=== PATIENT | male | born 1935 | race Caucasian/White ===

== ENCOUNTER 2017-06-07 08:00 | Outpatient (CLI) | payer MEDICARE, OTHER ==
[2017-06-07 13:59] LABS: PSA FREE 0.554 ng/mL (0.16-2.81)
[2017-06-07 14:01] LABS: PSA TOTAL 2.198 ng/mL (0.000-2.000)
[2017-06-07 14:05] LABS: ALBUMIN/GLOBULIN RATIO 1.3 (1.0-2.2); BILIRUBIN,TOTAL 0.6 mg/dL (0.2-1.0); BUN - BLOOD UREA NITROGEN 23 mg/dL (6-20); CALCIUM 8.9 mg/dL (8.5-10.3); CARBON DIOXIDE - CO2 27 mmol/L (21-32); CHLORIDE 108 mmol/L (101-111); CHOL/HDL RATIO 2.1 (<5.0); CHOLESTEROL 149 mg/dL; CREATININE 1.2 mg/dL (0.6-1.2); GFR - MDRD 58 (>89); GLUCOSE 106 mg/dL (70-100); HDL CHOLESTEROL 70 mg/dL; POTASSIUM 4.2 mmol/L (3.5-5.0); SODIUM 140 mmol/L (135-145); TOTAL PROTEIN 6.4 g/dL (6.7-8.2); TRIGLYCERIDES 39 mg/dL
[2017-06-07 14:21] LABS: HEMOGLOBIN A1C 0.6 g/dL
[2017-06-07 14:25] LABS: LDL CHOLESTEROL,DIRECT 61 mg/dL
== END 2017-06-07 08:01 | disposition home or self-care (01) ==
LOC: LAB.WCP 08:00
PROVIDERS: ATTEND Family Medicine
DX: E03.9 Hypothyroidism, unspecified (principal); E55.9 Vitamin D deficiency, unspecified; R73.01 Impaired fasting glucose; E74.39 Other disorders of intestinal carbohydrate absorption; I25.10 Atherosclerotic heart disease of native coronary artery without angina pectoris; I10 Essential (primary) hypertension; E78.5 Hyperlipidemia, unspecified
CPT/HCPCS: 36415; 80053; 80061; 82306; 83036; 84154; 84443

== ENCOUNTER 2017-06-30 09:00 | Outpatient (CLI) | payer MEDICARE, OTHER | END 2017-06-30 09:01 | disposition critical access hospital (66) | LOC: EMS 09:00 | PROVIDERS: ATTEND Surgery | DX: R07.89 Other chest pain (principal) | CPT/HCPCS: A0425; A0427 ==

== ENCOUNTER 2017-06-30 09:30 | Emergency (ER) | payer MEDICARE, OTHER ==
[2017-06-30 10:03] LABS: BASOPHILS % (AUTO) 0.6 %; EOSINOPHILS # (AUTO) 0.2 10^3/uL (0.0-0.7); EOSINOPHILS % (AUTO) 3.1 %; HCT - HEMATOCRIT 40.2 % (42.0-52.0); HGB - HEMOGLOBIN 13.4 g/dL (14.0-18.0); LYMPHOCYTES # (AUTO) 0.7 10^3/uL (1.5-3.5); LYMPHOCYTES % (AUTO) 14.6 %; MEAN CORPUSCULAR HGB CONC 33.5 g/dL (32.0-36.0); MEAN CORPUSCULAR VOLUME 92.7 fL (80.0-94.0); MEAN PLATELET VOLUME 8.5 fL (7.4-11.4); MONOCYTES # (AUTO) 0.4 10^3/uL (0.0-1.0); MONOCYTES % (AUTO) 7.1 %; NEUTROPHILS # (AUTO) 3.7 10^3/uL (1.5-6.6); NEUTROPHILS % (AUTO) 74.6 %; RED BLOOD COUNT 4.33 10^6/uL (4.70-6.10); RED CELL DISTRIBUTION WIDTH 13.5 % (12.0-15.0); UNCORRECTED WHITE BLOOD COUNT 4.9 x10^3/uL; WHITE BLOOD COUNT 4.9 x10^3/uL (4.8-10.8)
[2017-06-30 10:13] LABS: ALBUMIN/GLOBULIN RATIO 1.2 (1.0-2.2); CREATININE 1.1 mg/dL (0.6-1.2); POTASSIUM 3.9 mmol/L (3.5-5.0); TOTAL PROTEIN 6.5 g/dL (6.7-8.2)
--- NOTE | 2017-06-30 10:37 | ED Physician Documentation ---
PD HPI CHEST PAIN - Stated complaint Stated Complaint: CP - Chief complaint Chief Complaint: Cardiac - History obtained from History obtained from: Patient, EMS - History of Present Illness Timing - onset: How many hours ago (1.5) Timing - onset during: Rest (after breakfast) Timing - duration: Minutes (45) Quality: Aching Location: Substernal Radiation: Jaw, Left upper extremity Improved by: Nitro (x2) Associated symptoms: No: Shortness of air, Diaphoresis, Vomiting Similar symptoms before: Diagnosis (History of coronary artery disease, with IL in 2010, and coronary stents.) - Treatment prior to arrival Treatment prior to arrival: Nitroglycerin 2, self-administered by the patient. Aspirin 324 mg administered by medics. - Additional information Additional information: The patient is a very pleasant 81-year-old male who arrives via ambulance after experiencing substernal chest discomfort with subsequent radiation of aching in his left forearm and his jaw. His symptoms started after eating breakfast about one and a half hours prior to arrival. Total duration was about 45 minutes, and resolved after the patient took 2 sublingual nitroglycerin. He then called 911, and medics administered 4 baby aspirin. He is symptom-free at the time of arrival in the emergency department. He reports similar symptoms when he had an IL in 2010. He is status post coronary stent placements in the RCA and LAD. On further review of systems he denies any recent fever, cough, shortness of breath, abdominal pain, nausea or vomiting. He split firewood yesterday, and denies having any chest discomfort with exertional activity at that time. Review of Systems Constitutional: denies: Fever, Fatigue Ears: denies: Tinnitus/ringing Nose: denies: Congestion Throat: denies: Sore throat Cardiac: reports: Chest pain / pressure. denies: Palpitations Respiratory: denies: Dyspnea, Cough GI: denies: Abdominal Pain, Nausea, Vomiting : denies: Dysuria Skin: denies: Rash Musculoskeletal: denies: Back pain, Extremity swelling Neurologic: denies: Focal weakness, Numbness, Headache PD PAST MEDICAL HISTORY - Past Medical History Past Medical History: Yes Cardiovascular: Hypertension, [place], Other Respiratory: None Endocrine/Autoimmune: None GI: Colon polyps : Frequency HEENT: Chronic hearing loss Psych: None Musculoskeletal: Rheumatoid arthritis, Other Derm: None - Past Surgical History Past Surgical History: Yes Cardiovascular: Coronary stent - Present Medications Home Medications: Ambulatory Orders Medication Instructions Recorded Confirmed Ascorbic Acid [Vitamin C] 1 tab PO DAILY 02/21/15 08/07/15 Aspirin [Aspir 81] 1 tab PO DAILY 02/21/15 08/07/15 Losartan [Cozaar] 100 mg DAILY 02/21/15 08/07/15 Metoprolol Tartrate [Lopressor] 1 tab PO BID 02/21/15 08/07/15 Multivitamin [Multivitamins] 1 tab PO DAILY 02/21/15 08/07/15 Simvastatin [Zocor] 20 mg PO DAILY 02/21/15 08/07/15 metroNIDAZOLE 0.75% GEL TOP DAILY 02/21/15 08/07/15 Latanoprost 0.005% Ophth Drops 1 drops OPTH QPM 08/07/15 08/07/15 [Xalatan Ophth Drops] Isosorbide Mononitrate [Isosorbide 30 mg PO DAILY #30 tab.er.24h 06/30/17 Mononitrate ER] - Allergies Allergies/Adverse Reactions: Allergies Allergy/AdvReac Type Severity Reaction Status Date / Time morphine AdvReac Severe bradycardia Verified 08/06/15 13:29 - Social History Does the pt smoke?: No Smoking Status: Never smoker Does the pt drink ETOH?: No Does the pt have substance abuse?: No - Immunizations Immunizations are current?: No PD ED PE NORMAL - Vitals Vital signs reviewed: Yes (mild hypertension initially.) - General General: Alert and oriented X 3, Well developed/nourished - HEENT HEENT: Atraumatic, EOMI, Pharynx benign - Neck Neck: No adenopathy, No JVD - Cardiac Cardiac: RRR, Other (2/6 systolic murmur.) - Respiratory Respiratory: No respiratory distress, Clear bilaterally - Abdomen Abdomen: Soft, Non tender - Back Back: No CVA TTP - Derm Derm: No rash - Extremities Extremities: No edema, No calf tenderness / cord - Neuro Neuro: Alert and oriented X 3, No motor deficit, No sensory deficit Results - Vitals Vitals: Oxygen O2 Source Room air - EKG (time done) 09:35 Rate: Rate (enter#) (67) Rhythm: NSR [place]: LAD (-38) Intervals: Normal [place] QRS: Normal Ischemia: Normal ST segments Compare to prior EKG: Old EKG unavailable Computer interpretation: Agree with computer - Labs Labs: Laboratory Tests 06/30/17 06/30/17 06/30/17 09:50 09:50 09:50 WBC 4.9 RBC 4.33 L Hgb 13.4 L Hct 40.2 L MCV 92.7 MCH 31.0 MCHC 33.5 RDW 13.5 Plt Count 156 MPV 8.5 Neut # 3.7 Lymph # 0.7 L [place] # 0.4 Eos # 0.2 Baso # 0.0 Absolute Nucleated RBC 0.00 Nucleated RBCs 0.0 Sodium 140 Potassium 3.9 Chloride 108 Carbon Dioxide 25 Anion Gap 7.0 BUN 20 Creatinine 1.1 Estimated GFR (MDRD) 64 L Glucose 121 H Calcium 9.0 Total Bilirubin 1.0 AST 34 ALT 24 Alkaline Phosphatase 65 Troponin I < 0.04 Total Protein 6.5 L Albumin 3.6 Globulin 2.9 Albumin/Globulin Ratio 1.2 Lipase 31 - Rads (name of study) 1-view CXR Radiology: Prelim report reviewed, EMP read contemporaneously, See rad report ( Increased interstitial markings, question early interstitial edema versus poor inspiratory effort. Otherwise negative chest radiography.) PD MEDICAL DECISION MAKING - ED course Complexity details: reviewed old records, reviewed results, re-evaluated patient , considered differential, d/w patient, d/w family, d/w pharmacy consultant ED course: The patient's presentation is consistent with angina, with brief substernal chest discomfort relieved with sublingual nitroglycerin. His presentation does not suggest acute myocardial infarction, with no ischemic abnormalities on EKG, and normal troponin level. He has remained asymptomatic during his entire time in the emergency department. His presentation does not suggest congestive heart failure, pulmonary embolus, or pneumonia. I discussed his condition with Dr. Pugh, his receiving manager, who advises initiating treatment with isosorbide, and outpatient follow-up with a stress echo. The patient is being discharged with prescription for isosorbide 30 mg daily. I discussed with him and his family the results of his workup, importance of cardiology follow-up, as well as potentially worrisome signs or symptoms that should prompt reevaluation in the emergency department. Departure - Departure Disposition: 01 Home, Self Care Clinical Impression: Chest pain Qualifiers: Chest pain type: unspecified Qualified Code(s): R07.9 - Chest pain, unspecified Condition: Stable Instructions: ED Chest Pain Angina Stable Follow-Up: [facility] - Card [Provider Group] Prescriptions: Isosorbide Mononitrate [Isosorbide Mononitrate ER] 30 mg PO DAILY #30 tab.er.24h Comments: Add isosorbide once daily to your currently prescribed medication. You can use your sublingual nitroglycerin if you develop recurrent chest discomfort. Dr. Pugh's office will call you to arrange for a stress echo, and a followup appointment. Return to the emergency department if you develop recurrent or increasing chest pain or shortness of breath, that is not relieved with sublingual nitroglycerin. Discharge Date/Time: 06/30/17 12:02
--- NOTE | 2017-06-30 10:42 | XRAY Report ---
EXAM: CHEST RADIOGRAPHY EXAM DATE: 06/30/2017 10:24 AM. CLINICAL HISTORY: Chest pain. COMPARISON: 09/05/2016 TECHNIQUE: 1 view. FINDINGS: Lungs/Pleura: Increased interstitial markings, may be related to shallow inspiratory effort or early interstitial edema. No focal opacities evident. No pleural effusion. No pneumothorax. Mediastinum: Heart size accentuated by the AP portable technique. IMPRESSION: Increased interstitial markings, question early interstitial edema versus shallow inspira tory effort. Otherwise negative. [facility] Referring Provider Line: [phone] SITE ID: [id number]
[2017-06-30 11:40] VITALS: BP 125/62
== END 2017-06-30 12:02 | disposition home or self-care (01) ==
LOC: EDUNIT# → ED 09:30
DX: R07.9 Chest pain, unspecified (principal); Z79.82 Long term (current) use of aspirin; Z95.5 Presence of coronary angioplasty implant and graft; I10 Essential (primary) hypertension; I25.2 Old myocardial infarction; M06.9 Rheumatoid arthritis, unspecified
CPT/HCPCS: 36415; 71010; 80053; 83690; 84484; 85025; 93005; 99284

== ENCOUNTER 2017-12-29 08:00 | Outpatient (CLI) | payer MEDICARE, OTHER ==
[2017-12-29 13:10] LABS: ALBUMIN 3.5 g/dL (3.2-5.5); ALBUMIN/GLOBULIN RATIO 1.2 (1.0-2.2); ALKALINE PHOSPHATASE 75 IU/L (42-121); ALT ALANINE AMINOTRANSFERASE 22 IU/L (10-60); AST ASPARTATE AMINOTRANSFERASE 28 IU/L (10-42); BILIRUBIN,TOTAL 0.7 mg/dL (0.2-1.0); BUN - BLOOD UREA NITROGEN 19 mg/dL (6-20); CALCIUM 8.7 mg/dL (8.5-10.3); CARBON DIOXIDE - CO2 25 mmol/L (21-32); CHLORIDE 104 mmol/L (101-111); CHOLESTEROL 128 mg/dL; CREATININE 1.1 mg/dL (0.6-1.2); GFR - MDRD 64 (>89); GLUCOSE 105 mg/dL (70-100); HDL CHOLESTEROL 65 mg/dL; LDL CHOLESTEROL,CALCULATED 54 mg/dL; LDL/HDL RATIO 0.8 (<3.6); SODIUM 140 mmol/L (135-145); TOTAL PROTEIN 6.5 g/dL (6.7-8.2); VLDL CHOLESTEROL 9 mg/dL
[2017-12-29 13:19] LABS: HB2 TOTAL 15.3 g/dL; HEMOGLOBIN A1C 0.61 g/dL; HEMOGLOBIN A1C % 5.8 % (4.6-6.2)
== END 2017-12-29 08:01 | disposition home or self-care (01) ==
LOC: LAB.WCP 08:00
PROVIDERS: ATTEND Family Medicine
DX: I25.10 Atherosclerotic heart disease of native coronary artery without angina pectoris (principal); E78.5 Hyperlipidemia, unspecified; E03.9 Hypothyroidism, unspecified; E74.39 Other disorders of intestinal carbohydrate absorption; I10 Essential (primary) hypertension; Z79.899 Other long term (current) drug therapy
CPT/HCPCS: 36415; 80053; 80061; 83036; 83721

== ENCOUNTER 2018-02-22 08:00 | Outpatient (CLI) | payer MEDICARE, OTHER ==
[2018-02-22 19:07] LABS: BASOPHILS % (AUTO) 0.6 %; EOSINOPHILS # (AUTO) 0.1 10^3/uL (0.0-0.7); EOSINOPHILS % (AUTO) 1.7 %; HGB - HEMOGLOBIN 12.9 g/dL (14.0-18.0); LYMPHOCYTES # (AUTO) 1.1 10^3/uL (1.5-3.5); LYMPHOCYTES % (AUTO) 13.6 %; MEAN CORPUSCULAR HEMOGLOBIN 30.2 pg (27.0-31.0); MEAN CORPUSCULAR HGB CONC 32.7 g/dL (32.0-36.0); MEAN CORPUSCULAR VOLUME 92.5 fL (80.0-94.0); MEAN PLATELET VOLUME 9.1 fL (7.4-11.4); MONOCYTES # (AUTO) 0.7 10^3/uL (0.0-1.0); MONOCYTES % (AUTO) 9.1 %; NEUTROPHILS # (AUTO) 5.9 10^3/uL (1.5-6.6); PLT - PLATELET COUNT 197 10^3/uL (130-450); RED BLOOD COUNT 4.29 10^6/uL (4.70-6.10); RED CELL DISTRIBUTION WIDTH 13.7 % (12.0-15.0); WHITE BLOOD COUNT 7.8 x10^3/uL (4.8-10.8)
[2018-02-22 19:16] LABS: CALCIUM 8.8 mg/dL (8.5-10.3); CREATININE 1.1 mg/dL (0.6-1.2); MAGNESIUM 2.2 mg/dL (1.7-2.8)
== END 2018-02-22 08:01 | disposition home or self-care (01) ==
LOC: LAB.WCP 08:00
PROVIDERS: ATTEND Internal Medicine Cardiovascular Disease
DX: I47.2 Ventricular tachycardia (principal); R00.2 Palpitations; I47.1 Supraventricular tachycardia
CPT/HCPCS: 36415; 80048; 83735; 84153; 85025

== ENCOUNTER 2018-05-11 08:00 | Outpatient (CLI) | payer MEDICARE, OTHER ==
[2018-05-11 19:15] LABS: CALCIUM 8.9 mg/dL (8.5-10.3); CREATININE 1.1 mg/dL (0.6-1.2)
== END 2018-05-11 23:59 | disposition home or self-care (01) ==
LOC: LAB.WCP 08:00
PROVIDERS: ATTEND Family Medicine
DX: I10 Essential (primary) hypertension (principal)
CPT/HCPCS: 36415; 80048

== ENCOUNTER 2018-05-15 07:58 | Outpatient (CLI) | END 2018-05-15 07:59 | disposition home or self-care (01) | CPT/HCPCS: 74178; Q9967 ==

== ENCOUNTER 2018-06-29 07:30 | Outpatient (CLI) | payer MEDICARE, OTHER ==
[2018-06-29 13:02] LABS: ALBUMIN 3.4 g/dL (3.2-5.5); ALBUMIN/GLOBULIN RATIO 1.2 (1.0-2.2); ALKALINE PHOSPHATASE 55 IU/L (42-121); ALT ALANINE AMINOTRANSFERASE 23 IU/L (10-60); AST ASPARTATE AMINOTRANSFERASE 29 IU/L (10-42); BILIRUBIN,TOTAL 0.7 mg/dL (0.2-1.0); BUN - BLOOD UREA NITROGEN 27 mg/dL (6-20); CALCIUM 8.7 mg/dL (8.5-10.3); CARBON DIOXIDE - CO2 27 mmol/L (21-32); CHLORIDE 111 mmol/L (101-111); CHOL/HDL RATIO 1.9 (<5.0); CHOLESTEROL 128 mg/dL; CREATININE 1.1 mg/dL (0.6-1.2); GFR - MDRD 64 (>89); GLUCOSE 101 mg/dL (70-100); HDL CHOLESTEROL 67 mg/dL; LDL CHOLESTEROL,CALCULATED 50 mg/dL; LDL/HDL RATIO 0.7 (<3.6); SODIUM 142 mmol/L (135-145); TOTAL PROTEIN 6.3 g/dL (6.7-8.2); VLDL CHOLESTEROL 11 mg/dL
[2018-06-29 14:24] LABS: HB2 TOTAL 13.7 g/dL; HEMOGLOBIN A1C 0.55 g/dL; HEMOGLOBIN A1C % 5.8 % (4.6-6.2)
== END 2018-06-29 07:31 | disposition home or self-care (01) ==
LOC: LAB.WCP 07:30
PROVIDERS: ATTEND Family Medicine
DX: R00.2 Palpitations (principal); E78.5 Hyperlipidemia, unspecified; I25.10 Atherosclerotic heart disease of native coronary artery without angina pectoris; E74.39 Other disorders of intestinal carbohydrate absorption; I10 Essential (primary) hypertension; R73.01 Impaired fasting glucose
CPT/HCPCS: 36415; 80053; 80061; 83036; 83721

== ENCOUNTER 2019-01-14 08:30 | Outpatient (CLI) | payer MEDICARE, OTHER ==
[2019-01-14 12:35] LABS: BASOPHILS % (AUTO) 0.5 %; EOSINOPHILS # (AUTO) 0.3 10^3/uL (0.0-0.7); EOSINOPHILS % (AUTO) 5.4 %; HGB - HEMOGLOBIN 13.5 g/dL (14.0-18.0); LYMPHOCYTES # (AUTO) 1.6 10^3/uL (1.5-3.5); MEAN CORPUSCULAR HEMOGLOBIN 31.5 pg (27.0-31.0); MEAN CORPUSCULAR HGB CONC 33.8 g/dL (32.0-36.0); MEAN CORPUSCULAR VOLUME 93.2 fL (80.0-94.0); MEAN PLATELET VOLUME 9.1 fL (7.4-11.4); MONOCYTES # (AUTO) 0.5 10^3/uL (0.0-1.0); MONOCYTES % (AUTO) 9.4 %; NEUTROPHILS # (AUTO) 3.2 10^3/uL (1.5-6.6); NEUTROPHILS % (AUTO) 56.7 %; PLT - PLATELET COUNT 168 10^3/uL (130-450); RED BLOOD COUNT 4.28 10^6/uL (4.70-6.10); RED CELL DISTRIBUTION WIDTH 14.1 % (12.0-15.0); WHITE BLOOD COUNT 5.6 x10^3/uL (4.8-10.8)
[2019-01-14 13:05] LABS: ALBUMIN 3.5 g/dL (3.2-5.5); ALBUMIN/GLOBULIN RATIO 1.2 (1.0-2.2); ALKALINE PHOSPHATASE 66 IU/L (42-121); ALT ALANINE AMINOTRANSFERASE 24 IU/L (10-60); AST ASPARTATE AMINOTRANSFERASE 30 IU/L (10-42); BILIRUBIN,TOTAL 0.9 mg/dL (0.2-1.0); BUN - BLOOD UREA NITROGEN 20 mg/dL (6-20); CALCIUM 8.9 mg/dL (8.5-10.3); CARBON DIOXIDE - CO2 28 mmol/L (21-32); CHLORIDE 104 mmol/L (101-111); CHOLESTEROL 148 mg/dL; GFR - MDRD 71 (>89); GLUCOSE 107 mg/dL (70-100); HDL CHOLESTEROL 73 mg/dL; LDL CHOLESTEROL,CALCULATED 66 mg/dL; LDL/HDL RATIO 0.9 (<3.6); SODIUM 138 mmol/L (135-145); TOTAL PROTEIN 6.4 g/dL (6.7-8.2); VLDL CHOLESTEROL 9 mg/dL
[2019-01-14 13:29] LABS: HB2 TOTAL 14.5 g/dL; HEMOGLOBIN A1C 0.57 g/dL; HEMOGLOBIN A1C % 5.7 % (4.6-6.2)
== END 2019-01-14 08:31 ==
LOC: LAB.WCP 08:30
PROVIDERS: ATTEND Family Medicine
DX: R73.01 Impaired fasting glucose (principal); E78.5 Hyperlipidemia, unspecified; E03.9 Hypothyroidism, unspecified; I10 Essential (primary) hypertension
CPT/HCPCS: 36415; 80053; 80061; 83036; 83721; 84443; 85025

== ENCOUNTER 2019-01-21 11:40 | Outpatient (CLI) | payer MEDICARE, OTHER | END 2019-01-21 11:41 | disposition home or self-care (01) | LOC: LAB.WCP 11:40 | PROVIDERS: ATTEND Family Medicine | DX: E03.9 Hypothyroidism, unspecified (principal) | CPT/HCPCS: 36415; 84443 ==

== ENCOUNTER 2019-05-13 08:00 | Outpatient (CLI) | payer MEDICARE, OTHER ==
[2019-05-13 12:54] LABS: CALCIUM 9.1 mg/dL (8.5-10.3)
== END 2019-05-13 08:01 | disposition home or self-care (01) ==
LOC: LAB.WCP 08:00
PROVIDERS: ATTEND Internal Medicine
DX: I10 Essential (primary) hypertension (principal)
CPT/HCPCS: 36415; 80048

== ENCOUNTER 2019-06-22 03:56 | Emergency (ER) | payer MEDICARE, OTHER ==
--- NOTE | 2019-06-22 06:46 | ED Physician Documentation ---
History of Present Illness - Stated complaint Stated Complaint: LEG SWELLING BILAT - Chief complaint Chief Complaint: Ext Problem - Additonal information Additional information: This is an 83-year-old male with a history of bladder cancer previously in remission, with a recent recurrence, CAD status post PCI x2 in 2010, who presents with bilateral right greater than left leg swelling. Patient states that he had a cystoscopy last [place] they did a biopsy and it came back positive for a low-grade bladder cancer. He has been feeling well, and urinating normally since then, however last night he began developing some swelling around his bilateral ankles. When he woke up this morning the swelling was a bit worse bilaterally and he was more uncomfortable in his right leg, which he thinks appears larger. He denies any history of DVT, leg swelling in the past, or heart failure. He denies fever, shortness of breath, or chest pain. He has been told that he has a heart murmur, but does not know why. Review of Systems Constitutional: denies: Fever Eyes: denies: Loss of vision Throat: denies: Other Cardiac: denies: Chest pain / pressure Respiratory: denies: Dyspnea GI: denies: Abdominal Pain : reports: Other (See HPI) Skin: denies: Rash Neurologic: denies: Generalized weakness PD PAST MEDICAL HISTORY - Past Medical History Past Medical History: Yes Cardiovascular: Hypertension, [place], Other Respiratory: None Endocrine/Autoimmune: None GI: Colon polyps : Frequency HEENT: Chronic hearing loss Psych: None Musculoskeletal: Rheumatoid arthritis, Other Derm: None - Past Surgical History Past Surgical History: Yes Cardiovascular: Coronary stent - Present Medications Home Medications: Ambulatory Orders Medication Instructions Recorded Confirmed Ascorbic Acid [Vitamin C] 1 tab PO DAILY 02/21/15 06/22/19 Aspirin [Aspir 81] 1 tab PO DAILY 02/21/15 06/22/19 Losartan [Cozaar] 100 mg PO DAILY 02/21/15 06/22/19 Metoprolol Tartrate [Lopressor] 1 tab PO BID 02/21/15 06/22/19 Multivitamin [Multivitamins] 1 tab PO DAILY 02/21/15 06/22/19 Simvastatin [Zocor] 20 mg PO DAILY 02/21/15 06/22/19 metroNIDAZOLE 0.75% GEL 1 applic TOP DAILY 02/21/15 06/22/19 Latanoprost 0.005% Ophth Drops 1 drops OPTH QPM 08/07/15 06/22/19 [Xalatan Ophth Drops] - Allergies Allergies/Adverse Reactions: Allergies Allergy/AdvReac Type Severity Reaction Status Date / Time morphine AdvReac Severe bradycardia Verified 06/22/19 04:03 - Social History Does the pt smoke?: No Smoking Status: Never smoker Does the pt drink ETOH?: No Does the pt have substance abuse?: No - Immunizations Immunizations are current?: No - POLST Patient has POLST: No PD ED PE NORMAL - Free text exam Free text exam: GENERAL: Awake, alert EYES: Normal sclera HENT/Mouth: Mucus membranes are moist RESP: Lungs sound clear and equal bilaterally CV: Regular rate and rhythm; 2/6 systolic ejection murmur, trace LE edema bilaterally to the lower shins. MSK: Brisk capillary refill over all toes, patient is able to wiggle his toes dorsiflex and plantarflex his ankle without issue. Symmetric 2+ DP pulses bilaterally, sensation to light touch intact over feet. GI: Abdomen is soft, non-distended, No tenderness to palpation of all quadrants NEURO: Alert, oriented x3; gross movement and sensation intact Results - Vitals Vitals: Vital Signs - 24 hr 06/22/19 06/22/19 04:01 07:01 Temperature 36.9 C 36.8 C Heart Rate 57 L 60 Respiratory 18 16 Rate Blood Pressure 144/72 H 142/110 H O2 Saturation 98 98 Oxygen O2 Source Room air - EKG (time done) 8:45 Rate: Rate (enter#), [place] Rhythm: Sinus bradycardia [place]: LAD Intervals: Normal [place] QRS: Normal Ischemia: Normal ST segments - Labs Labs: Laboratory Tests 06/22/19 06/22/19 06/22/19 07:24 07:24 07:24 WBC 4.8 RBC 4.17 L Hgb 12.8 L Hct 40.2 L MCV 96.4 H MCH 30.7 MCHC 31.8 L RDW 13.1 Plt Count 174 MPV 10.4 Neut # (Auto) 3.1 Lymph # (Auto) 1.0 L [place] # (Auto) 0.4 Eos # (Auto) 0.2 Baso # (Auto) 0.0 Absolute Nucleated RBC 0.00 Nucleated RBC % 0.0 Sodium 141 Potassium 4.0 Chloride 107 Carbon Dioxide 23 Anion Gap 11.0 BUN 17 Creatinine 0.9 Estimated GFR (MDRD) 80 L Glucose 120 H Calcium 8.7 Total Bilirubin 0.7 AST 26 ALT 20 Alkaline Phosphatase 70 B-Natriuretic Peptide 169 H Total Protein 6.4 L Albumin 3.5 Globulin 2.9 Albumin/Globulin Ratio 1.2 TSH 06/22/19 07:24 WBC RBC Hgb Hct MCV MCH MCHC RDW Plt Count MPV Neut # (Auto) Lymph # (Auto) [place] # (Auto) Eos # (Auto) Baso # (Auto) Absolute Nucleated RBC Nucleated RBC % Sodium Potassium Chloride Carbon Dioxide Anion Gap BUN Creatinine Estimated GFR (MDRD) Glucose Calcium Total Bilirubin AST ALT Alkaline Phosphatase B-Natriuretic Peptide Total Protein Albumin Globulin Albumin/Globulin Ratio TSH 5.19 PD MEDICAL DECISION MAKING - ED course Complexity details: considered differential (DVT, heart failure, medication side effect, hypoalbuminemia, hypothyroidism, electrolyte disturbance, MARISSA) ED course: On initial examination patient is hypertensive and slightly bradycardic, consistent with his beta-jorden use. He is in no acute distress. He does have trace pitting lower extremity edema to his lower shins bilaterally. Labs were drawn, CBC and CMP are unremarkable. BNP is somewhat elevated at 170, suggesting mild cardiac dysfunction or volume overload. EKG is obtained and does not show any convincing signs of ischemia or dysrhythmia. He has no chest pain no shortness of breath, he is able to perform his daily activities with no problem, I feel that acute cardiac process, SD, PE are very unlikely. Duplex ultrasound of the bilateral lower extremities show no signs of DVT. Patient was given 20 mg of furosemide once for his swelling. I discussed with him that he appears to have some mild volume overload, however given that he otherwise feels well and his labs are generally reassuring, I do not feel he warrants hospitalization at this time. Performed a bedside echocardiogram which was limited by the resolution of arm pain, however there is no pericardial effusion. He does have some thickening along the aortic valve, which I think is likely that source of his murmur. I discussed that he should receive an echocardiogram and have follow-up visit with his receiving barn custodian, and should also follow-up with his primary care provider within 1 week. If he has worsening leg swelling, or any symptoms such as shortness of breath, chest pain, or fever, he should return to the emergency department immediately. Patient agreed with this plan and was discharged home. Departure - Departure Disposition: 01 Home, Self Care Clinical Impression: Localized swelling of both lower legs Condition: Stable Instructions: ED Edema Legs Bilateral Follow-Up: Rosio Velasco MD [Primary Care Provider] - Within 1 week (As soon as possible, for follow up on leg swellling and somewhat elevated BNP) Comments: You were seen today for leg swelling. Your ultrasound of the legs did not show signs of a blood clot. You may need a repeat ultrasound in a week to double check this. Your labs did not show signs of low albumin. Your BNP was somewhat high at 170, which suggest that you may have some volume overload or mild strain on your heart. It is important that you follow-up with your primary care provider and receiving barn custodian as soon as possible. If the swelling in your legs Increases, or you have fever, shortness of breath, chest pain, or any other concerning symptoms, please return to the emergency department. Please keep your legs elevated at rest to help reduce the swelling.
[2019-06-22 07:56] LABS: BASOPHILS % (AUTO) 0.8 %; EOSINOPHILS # (AUTO) 0.2 10^3/uL (0.0-0.7); EOSINOPHILS % (AUTO) 4.4 %; HGB - HEMOGLOBIN 12.8 g/dL (14.0-18.0); LYMPHOCYTES % (AUTO) 20.3 %; MEAN CORPUSCULAR HEMOGLOBIN 30.7 pg (27.0-31.0); MEAN CORPUSCULAR HGB CONC 31.8 g/dL (32.0-36.0); MEAN CORPUSCULAR VOLUME 96.4 fL (80.0-94.0); MEAN PLATELET VOLUME 10.4 fL (7.4-11.4); MONOCYTES # (AUTO) 0.4 10^3/uL (0.0-1.0); MONOCYTES % (AUTO) 8.6 %; NEUTROPHILS # (AUTO) 3.1 10^3/uL (1.5-6.6); NEUTROPHILS % (AUTO) 65.5 %; PLT - PLATELET COUNT 174 10^3/uL (130-450); RED BLOOD COUNT 4.17 10^6/uL (4.70-6.10); RED CELL DISTRIBUTION WIDTH 13.1 % (12.0-15.0); WHITE BLOOD COUNT 4.8 x10^3/uL (4.8-10.8)
[2019-06-22 08:09] LABS: ALBUMIN 3.5 g/dL (3.2-5.5); ALBUMIN/GLOBULIN RATIO 1.2 (1.0-2.2); BILIRUBIN,TOTAL 0.7 mg/dL (0.2-1.0); CALCIUM 8.7 mg/dL (8.5-10.3); CREATININE 0.9 mg/dL (0.6-1.2); TOTAL PROTEIN 6.4 g/dL (6.7-8.2)
--- NOTE | 2019-06-22 08:17 | Ultrasound Report ---
Reason: R> L leg swelling, hx cancer, eval for DVT Procedure Date: 06/22/2019 Accession Number: [id number] / [id number] Procedure: US - Duplex Ext Veins Bilateral CPT Code: FULL RESULT: EXAM: BILATERAL LOWER EXTREMITY VENOUS ULTRASOUND EXAM DATE: 06/22/2019 08:06 AM. CLINICAL HISTORY: Lower extremity edema, right greater than left leg swelling, hx cancer, eval for DVT. COMPARISON: None. TECHNIQUE: Real-time sonographic vascular imaging was performed by the scale expert through the lower extremities utilizing both color-flow and Doppler spectral analysis. Multiple order entry representative static images were saved for review. FINDINGS: Right: Common Femoral Vein (CFV): Normal. CFV-GSV Junction: Normal. Profunda Femoral Vein (PFV): Normal. Femoral Vein (FV) Prox: Normal. Femoral Vein (FV) Mid: Normal. Femoral Vein (FV) Dist: Normal. Popliteal Vein: Normal. Posterior Tibial Veins: Normal. Peroneal Veins: Normal. Left: Common Femoral Vein (CFV): Normal. CFV-GSV Junction: Normal. Profunda Femoral Vein (PFV): Normal. Femoral Vein (FV) Prox: Normal. Femoral Vein (FV) Mid: Normal. Femoral Vein (FV) Dist: Normal. Popliteal Vein: Normal. Posterior Tibial Veins: Normal. Peroneal Veins: Normal. Other: Visualization of calf veins mildly limited by edema in the bilateral lower extremities. IMPRESSION: No evidence for deep venous thrombosis in the bilateral lower extremities. [facility]
[2019-06-22] MEDS ORDERED: FUROSEMIDE 20 MG TABLET PO STA (08:47)
[2019-06-22 09:57] VITALS: BP 147/71
== END 2019-06-22 09:57 | disposition home or self-care (01) ==
LOC: ED 03:56
DX: R60.0 Localized edema (principal); R01.1 Cardiac murmur, unspecified; I10 Essential (primary) hypertension; R00.1 Bradycardia, unspecified; R79.89 Other specified abnormal findings of blood chemistry; I25.10 Atherosclerotic heart disease of native coronary artery without angina pectoris; Z95.5 Presence of coronary angioplasty implant and graft; I25.2 Old myocardial infarction; Z79.82 Long term (current) use of aspirin; C67.9 Malignant neoplasm of bladder, unspecified
CPT/HCPCS: 36415; 83880; 93005; 93970; 99282; 99284; A9270; 80053; 84443; 85025

== ENCOUNTER 2019-06-24 03:18 | Outpatient (CLI) | payer MEDICARE, OTHER | END 2019-06-24 03:19 | disposition critical access hospital (66) | LOC: EMS 03:18 | PROVIDERS: ATTEND Surgery | DX: R07.89 Other chest pain (principal) | CPT/HCPCS: A0425; A0429 ==

== ENCOUNTER 2019-06-24 03:43 | Emergency (ER) | payer MEDICARE, OTHER ==
--- NOTE | 2019-06-24 03:56 | ED Physician Documentation ---
PD HPI CHEST PAIN - Stated complaint Stated Complaint: CP - Chief complaint Chief Complaint: Cardiac - History obtained from History obtained from: Patient, EMS - History of Present Illness Timing - onset: How many hours ago (1.5) Timing - onset during: Rest Timing - details: Now resolved Quality: Pressure Location: Substernal Recently seen: Emergency Dept (2 days ago.) - Treatment prior to arrival Treatment prior to arrival: NTG x 1, one full aspirin. - Additional information Additional information: The patient is an 83-year-old male who arrives via ambulance after he developed slight substernal chest pressure about 1/2 hours prior to arrival. It lasted for 5 to 10 minutes and resolved after one sublingual nitroglycerin. It then recurred, lasting for about 15 minutes before it resolved spontaneously. In addition to one nitroglycerin he also took 1 full aspirin. He has not had recurrence of the chest discomfort since that time. He denies any associated shortness of breath, nausea or vomiting, or diaphoresis. His past medical history is significant for myocardial infarction in 2010, coronary stents x2, and bladder cancer that was initially diagnosed 1 year ago, but with recurrence on cystoscopy 9 days ago. He was seen in the emergency department here 2 days ago with swelling in his feet. Venous ultrasound of his lower extremities was negative for DVT. He was treated with furosemide with subsequent improvement in the pedal edema. Review of Systems Constitutional: denies: Fever, Fatigue Nose: denies: Congestion Throat: denies: Sore throat Cardiac: reports: Chest pain / pressure, Pedal edema (slight) Respiratory: denies: Dyspnea, Cough GI: denies: Nausea, Vomiting : denies: Dysuria Skin: denies: Rash Musculoskeletal: denies: Extremity pain Neurologic: denies: Focal weakness, Numbness, Headache PD PAST MEDICAL HISTORY - Past Medical History Cardiovascular: Hypertension, [place], Other Respiratory: None Endocrine/Autoimmune: None GI: Colon polyps : Frequency HEENT: Chronic hearing loss Psych: None Musculoskeletal: Rheumatoid arthritis, Other Derm: None - Past Surgical History Past Surgical History: Yes Cardiovascular: Coronary stent - Present Medications Home Medications: Ambulatory Orders Medication Instructions Recorded Confirmed Ascorbic Acid [Vitamin C] 1 tab PO DAILY 02/21/15 06/24/19 Aspirin [Aspir 81] 1 tab PO DAILY 02/21/15 06/24/19 Losartan [Cozaar] 100 mg PO DAILY 02/21/15 06/24/19 Metoprolol Tartrate [Lopressor] 12.5 tab PO DAILY 02/21/15 06/24/19 Multivitamin [Multivitamins] 1 tab PO DAILY 02/21/15 06/24/19 Simvastatin [Zocor] 20 mg PO DAILY 02/21/15 06/24/19 metroNIDAZOLE 0.75% GEL 1 applic TOP DAILY 02/21/15 06/24/19 Latanoprost 0.005% Ophth Drops 1 drops OPTH QPM 08/07/15 06/24/19 [Xalatan Ophth Drops] - Allergies Allergies/Adverse Reactions: Allergies Allergy/AdvReac Type Severity Reaction Status Date / Time morphine AdvReac Severe bradycardia Verified 06/24/19 03:49 - Social History Does the pt smoke?: No Smoking Status: Never smoker Does the pt drink ETOH?: No Does the pt have substance abuse?: No - Immunizations Immunizations are current?: No - POLST Patient has POLST: No PD ED PE NORMAL - Vitals Vital signs reviewed: Yes (borderline systolic hypertension) - General General: Alert and oriented X 3, Well developed/nourished - HEENT HEENT: Atraumatic, Pharynx benign - Neck Neck: No adenopathy, No JVD - Cardiac Cardiac: RRR, Other (II/ murmur.) - Respiratory Respiratory: No respiratory distress, Clear bilaterally - Abdomen Abdomen: Soft, Non tender - Back Back: No CVA TTP - Derm Derm: No rash - Extremities Extremities: No calf tenderness / cord, Other (trace pedal edema bilaterally.) - Neuro Neuro: Alert and oriented X 3, No motor deficit, Normal speech Results - Vitals Vitals: Vital Signs - 24 hr 06/24/19 06/24/19 06/24/19 03:43 03:52 04:06 Temperature 36.7 C Heart Rate 67 67 60 Respiratory 16 16 Rate Blood Pressure 140/79 H 138/80 H O2 Saturation 95 97 06/24/19 04:58 Temperature Heart Rate 56 L Respiratory 16 Rate Blood Pressure 122/66 O2 Saturation 93 Oxygen O2 Source Room air - EKG (time done) 03:43 Rate: Rate (enter#) (57) Rhythm: NSR [place]: LAD Intervals: Normal [place] QRS: Normal Ischemia: Normal ST segments Compare to prior EKG: Unchanged from prior EKG Computer interpretation: Agree with computer - Labs Labs: Laboratory Tests 06/24/19 06/24/19 06/24/19 04:24 04:24 04:24 WBC 5.6 RBC 4.03 L Hgb 12.3 L Hct 38.4 L MCV 95.3 H MCH 30.5 MCHC 32.0 RDW 13.0 Plt Count 170 MPV 9.7 Neut # (Auto) 3.7 Lymph # (Auto) 1.1 L [place] # (Auto) 0.5 Eos # (Auto) 0.2 Baso # (Auto) 0.0 Absolute Nucleated RBC 0.00 Nucleated RBC % 0.0 Sodium 143 Potassium 3.8 Chloride 110 Carbon Dioxide 23 Anion Gap 10.0 BUN 16 Creatinine 1.0 Estimated GFR (MDRD) 71 L Glucose 116 H Calcium 9.0 Total Bilirubin 0.8 AST 24 ALT 19 Alkaline Phosphatase 64 Troponin I < 0.04 Troponin I High Sens 7.8 Total Protein 6.1 L Albumin 3.4 Globulin 2.7 Albumin/Globulin Ratio 1.3 Lipase 29 - Rads (name of study) CXR Radiology: Prelim report reviewed, EMP read contemporaneously, See rad report (Mild prominence of the interstitial markings bilaterally, likely secondary to chronic interstitial lung disease. Otherwise no acute cardiopulmonary process identified radiographically.) PD MEDICAL DECISION MAKING - ED course Complexity details: reviewed old records, reviewed results, re-evaluated patient, considered differential, d/w patient, d/w family ED course: The cause for the patient's transient chest discomfort is uncertain at this time. Given his age and his cardiac history, angina is a consideration. There is no evidence of acute myocardial infarction represented on his electrocardiogram, and his high-sensitivity troponin is normal. Chest x-ray reveals no evidence of acute cardiopulmonary abnormality. His symptoms do not suggest pneumonia or pulmonary embolus. He remained asymptomatic while in the emergency department. I discussed with him and his family the results of his work-up, outpatient follow-up, as well as potentially worrisome signs or symptoms that should prompt reevaluation in the emergency department. He has sublingual nitroglycerin should he develop recurrent symptoms. Departure - Departure Disposition: 01 Home, Self Care Clinical Impression: Chest pain Qualifiers: Chest pain type: unspecified Qualified Code(s): R07.9 - Chest pain, unspecified Condition: Stable Instructions: ED Chest Pain Atypical Unkn Cause Follow-Up: Rosio Velasco MD [Primary Care Provider] - Comments: He can use nitroglycerin as previously prescribed if you develop recurrent chest discomfort. Follow-up with your rattlesnake farmer as planned. Return to the emergency department if you develop increasing chest pain, shortness of breath, or otherwise worsening symptoms.
[2019-06-24 04:31] LABS: BASOPHILS % (AUTO) 0.5 %; EOSINOPHILS # (AUTO) 0.2 10^3/uL (0.0-0.7); EOSINOPHILS % (AUTO) 3.8 %; HGB - HEMOGLOBIN 12.3 g/dL (14.0-18.0); LYMPHOCYTES # (AUTO) 1.1 10^3/uL (1.5-3.5); LYMPHOCYTES % (AUTO) 19.3 %; MEAN CORPUSCULAR HEMOGLOBIN 30.5 pg (27.0-31.0); MEAN CORPUSCULAR VOLUME 95.3 fL (80.0-94.0); MEAN PLATELET VOLUME 9.7 fL (7.4-11.4); MONOCYTES # (AUTO) 0.5 10^3/uL (0.0-1.0); MONOCYTES % (AUTO) 9.7 %; NEUTROPHILS # (AUTO) 3.7 10^3/uL (1.5-6.6); NEUTROPHILS % (AUTO) 66.3 %; PLT - PLATELET COUNT 170 10^3/uL (130-450); RED BLOOD COUNT 4.03 10^6/uL (4.70-6.10); WHITE BLOOD COUNT 5.6 x10^3/uL (4.8-10.8)
--- NOTE | 2019-06-24 04:31 | XRAY Report ---
Reason: chest pain Procedure Date: 06/24/2019 Accession Number: [id number] Procedure: XR - Chest 1 View X-Ray CPT Code: 48338 FULL RESULT: EXAM: CHEST RADIOGRAPHY EXAM DATE: 06/24/2019 04:21 AM. CLINICAL HISTORY: Chest pain. COMPARISON: None. TECHNIQUE: 1 view. FINDINGS: Lungs/Pleura: No infiltrates. No pleural effusions or pneumothorax. Mild prominence of the interstitial markings bilaterally. Mediastinum: Heart size within normal limits. No significant pulmonary vascular congestion. Osseous structures: No significant focal osseous lesions. Interval decreased osseous mineralization subjectively. IMPRESSION: 1. Mild prominence of the interstitial markings bilaterally likely secondary to chronic interstitial lung disease. 2. Otherwise, no acute cardiopulmonary process identified radiographically. RADIA
[2019-06-24 04:43] LABS: ALBUMIN 3.4 g/dL (3.2-5.5); ALBUMIN/GLOBULIN RATIO 1.3 (1.0-2.2); BILIRUBIN,TOTAL 0.8 mg/dL (0.2-1.0); TOTAL PROTEIN 6.1 g/dL (6.7-8.2)
[2019-06-24 04:48] LABS: TROPONIN I < 0.04 ng/mL (<0.49)
[2019-06-24 04:59] VITALS: BP 122/66
== END 2019-06-24 05:53 | disposition home or self-care (01) ==
LOC: EDUNIT# → ED 03:43
DX: R07.9 Chest pain, unspecified (principal); I10 Essential (primary) hypertension
CPT/HCPCS: 36415; 71045; 80053; 83690; 83880; 84484; 85025; 93005; 99283; 99284

== ENCOUNTER 2019-06-26 10:13 | Outpatient (CLI) | payer MEDICARE, OTHER | END 2019-06-26 10:14 | disposition short-term general hospital (02) | LOC: EMS 10:13 | PROVIDERS: ATTEND Surgery | DX: R07.89 Other chest pain (principal) | CPT/HCPCS: A0425; A0427 ==

== ENCOUNTER 2019-07-23 20:54 | Outpatient (CLI) | payer MEDICARE, OTHER | END 2019-07-23 20:55 | disposition critical access hospital (66) | LOC: EMS 20:54 | PROVIDERS: ATTEND Surgery | DX: R07.9 Chest pain, unspecified (principal) | CPT/HCPCS: A0425; A0427 ==

== ENCOUNTER 2019-07-23 21:23 | Emergency (ER) | payer MEDICARE, OTHER ==
--- NOTE | 2019-07-23 21:31 | ED Physician Documentation ---
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[employer]) Timing - onset during: Light activity Timing - duration: Minutes (10-15) Timing - details: Abrupt onset, Now resolved Pain level max: 3 Pain level now: 0 Quality: Pain Location: Substernal Radiation: Other (across chest) Improved by: Nitro Worsened by: Other (no exacerbating factors) Associated symptoms: No: Shortness of air, Diaphoresis, Nausea, Vomiting, Feeling faint / dizzy, General Weakness, Palpitations, Cough Similar symptoms before: No diagnosis, Work up / diagnostics (recent ST and Holter monitor) Recently seen: Emergency Dept - Additional information Additional information: BIBA. Patient had MD in 2010 for which he had two coronary artery stents placed ([facility]). He started having episodic chest discomfort 1-2 months ago and this prompted recent stress test and holter monitor at [facility]. This morning at 9:30 AM, patient had jaw "tightness" (per patient) while at rest at home, lasted 10-15 minutes and resolved with 1 SLNTG. This evening he had chest discomfort while ambulating at home, again lasting 10-15 minutes and resolved with 1 SLNTG. He then called 911. He has been asymptomatic since taking the SLNTG, but en route, medics captured a 9 beat run of ventricular tachycardia. Per medics, there were no apparent symptoms at the time of this dysrhythmia. Review of Systems Constitutional: reports: Reviewed and negative Eyes: reports: Reviewed and negative Ears: reports: Reviewed and negative Nose: reports: Reviewed and negative Throat: reports: Reviewed and negative Cardiac: reports: Chest pain / pressure. denies: Palpitations, Pedal edema, Calf pain Respiratory: reports: Reviewed and negative GI: reports: Reviewed and negative : denies: Dysuria, Frequency Skin: reports: Reviewed and negative Musculoskeletal: reports: Reviewed and negative Neurologic: reports: Reviewed and negative PD PAST MEDICAL HISTORY - Past Medical History Cardiovascular: Hypertension, MD, Other Respiratory: None Endocrine/Autoimmune: None GI: Colon polyps : Frequency HEENT: Chronic hearing loss Psych: None Musculoskeletal: Rheumatoid arthritis, Other Derm: None - Past Surgical History Past Surgical History: Yes Cardiovascular: Coronary stent - Present Medications Home Medications: Ambulatory Orders Medication Instructions Recorded Confirmed Ascorbic Acid [Vitamin C] 1 tab PO DAILY 02/21/15 06/24/19 Aspirin [Aspir 81] 1 tab PO DAILY 02/21/15 06/24/19 Losartan [Cozaar] 100 mg PO DAILY 02/21/15 06/24/19 Metoprolol Tartrate [Lopressor] 25 tab PO DAILY 02/21/15 06/24/19 Multivitamin [Multivitamins] 1 tab PO DAILY 02/21/15 06/24/19 Simvastatin [Zocor] 20 mg PO DAILY 02/21/15 06/24/19 metroNIDAZOLE 0.75% GEL 1 applic TOP BID 02/21/15 06/24/19 Latanoprost 0.005% Ophth Drops 1 drops OPTH QPM 08/07/15 06/24/19 [Xalatan Ophth Drops] Calcium Carbonate/Vitamin D3 500 mg PO DAILY 07/23/19 07/23/19 [Calcium 250-Vit D3 125 Tablet] Cholecalciferol (Vitamin D3) 1,000 mg PO DAILY 07/23/19 07/23/19 [Vitamin D3] Minocycline HCl 100 mg PO DAILY 07/23/19 07/23/19 Nitroglycerin 0.4 mg SL PRN PRN 07/23/19 07/23/19 [place]-3/Dha/Epa/Fish Oil [Fish Oil 100 mg PO DAILY 07/23/19 07/23/19 1,000 mg Softgel] - Allergies Allergies/Adverse Reactions: Allergies Allergy/AdvReac Type Severity Reaction Status Date / Time morphine AdvReac Severe bradycardia Verified 06/24/19 03:49 - Social History Does the pt smoke?: No Smoking Status: Never smoker Does the pt drink ETOH?: No Does the pt have substance abuse?: No - Immunizations Immunizations are current?: No - POLST Patient has POLST: No PD ED PE NORMAL - Vitals Vital signs reviewed: Yes - General General: Alert and oriented X 3, No acute distress, Well developed/nourished - HEENT HEENT: PERRL, EOMI, Moist mucous membranes - Neck Neck: Supple, no meningeal sign - Cardiac Cardiac: RRR - Respiratory Respiratory: No respiratory distress, Clear bilaterally - Abdomen Abdomen: Soft, Non tender - Derm Derm: Normal color, Warm and dry - Neuro Neuro: Alert and oriented X 3 PD ED PE EXPANDED - Cardiac Cardiac: Murmur Present (3/6 MALIKA greatest at base and LSB) - Extremities Extremities: Pedal edema bilateral (1+, minimally greater RLE than LLE) Results - Vitals Vitals: Vital Signs - 24 hr 07/23/19 07/23/19 07/23/19 21:35 21:38 23:49 Temperature 37.3 C Heart Rate 64 58 L Respiratory 21 14 Rate Blood Pressure 124/73 137/74 H Blood Pressure 122/73 [Left] Blood Pressure 124/73 [Right] O2 Saturation 94 96 07/24/19 07/24/19 00:00 00:04 Temperature Heart Rate 60 77 Respiratory 18 16 Rate Blood Pressure 134/82 H 127/74 Blood Pressure [Left] Blood Pressure [Right] O2 Saturation 95 94 Oxygen O2 Source Room air - EKG (time done) No standard instances Rate: Rate (enter#) (55) Rhythm: Sinus bradycardia [place]: LAD, Anterior hemiblock (LAFB) Intervals: Normal [place] QRS: Normal Ischemia: Normal ST segments, Q waves (II, III, aVF) - Labs Labs: Laboratory Tests 07/23/19 07/23/19 07/23/19 20:47 21:47 21:47 WBC 5.8 RBC 4.05 L Hgb 12.6 L Hct 38.7 L MCV 95.6 H MCH 31.1 H MCHC 32.6 RDW 13.0 Plt Count 158 MPV 10.1 Neut # (Auto) 3.8 Lymph # (Auto) 1.1 L [place] # (Auto) 0.7 Eos # (Auto) 0.2 Baso # (Auto) 0.1 Absolute Nucleated RBC 0.00 Nucleated RBC % 0.0 PT 12.3 INR 1.1 APTT 29.4 Sodium 140 Potassium 4.0 Chloride 108 Carbon Dioxide 24 Anion Gap 8.0 BUN 22 H Creatinine 1.0 Estimated GFR (MDRD) 71 L Glucose 126 H Calcium 8.7 Total Bilirubin 0.6 AST 26 ALT 20 Alkaline Phosphatase 68 Troponin I High Sens Total Protein 6.4 L Albumin 3.3 Globulin 3.1 Albumin/Globulin Ratio 1.1 Lipase 39 07/23/19 21:47 WBC RBC Hgb Hct MCV MCH MCHC RDW Plt Count MPV Neut # (Auto) Lymph # (Auto) [place] # (Auto) Eos # (Auto) Baso # (Auto) Absolute Nucleated RBC Nucleated RBC % PT INR APTT Sodium Potassium Chloride Carbon Dioxide Anion Gap BUN Creatinine Estimated GFR (MDRD) Glucose Calcium Total Bilirubin AST ALT Alkaline Phosphatase Troponin I High Sens 7.5 Total Protein Albumin Globulin Albumin/Globulin Ratio Lipase PD MEDICAL DECISION MAKING - ED course Complexity details: reviewed old records, reviewed results, re-evaluated patient, considered differential, d/w patient, d/w family ED course: D/W Dr. 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 D/W Dr. Haley, accepts transfer. Shortly before transfer, patient c/o left shoulder pain radiating to left side of neck. vital signs remained stable, given SLNTG x 1. CXR not performed in ED, as he has had 2 chest xrays in past month and has no pulmonary/respiratory c/o on this evaluation Departure - Departure Disposition: 02 Transfer Acute Care Hosp Clinical Impression: Ventricular tachycardia Chest pain Qualifiers: Chest pain type: unspecified Qualified Code(s): R07.9 - Chest pain, unspecified Condition: Stable Discharge Date/Time: 07/24/19 00:48
[2019-07-23 21:51] LABS: BASOPHILS # (AUTO) 0.1 10^3/uL (0.0-0.1); BASOPHILS % (AUTO) 0.9 %; EOSINOPHILS # (AUTO) 0.2 10^3/uL (0.0-0.7); EOSINOPHILS % (AUTO) 3.3 %; HGB - HEMOGLOBIN 12.6 g/dL (14.0-18.0); LYMPHOCYTES # (AUTO) 1.1 10^3/uL (1.5-3.5); LYMPHOCYTES % (AUTO) 18.4 %; MEAN CORPUSCULAR HEMOGLOBIN 31.1 pg (27.0-31.0); MEAN CORPUSCULAR HGB CONC 32.6 g/dL (32.0-36.0); MEAN CORPUSCULAR VOLUME 95.6 fL (80.0-94.0); MEAN PLATELET VOLUME 10.1 fL (7.4-11.4); MONOCYTES # (AUTO) 0.7 10^3/uL (0.0-1.0); MONOCYTES % (AUTO) 11.3 %; NEUTROPHILS # (AUTO) 3.8 10^3/uL (1.5-6.6); NEUTROPHILS % (AUTO) 65.9 %; PLT - PLATELET COUNT 158 10^3/uL (130-450); RED BLOOD COUNT 4.05 10^6/uL (4.70-6.10); WHITE BLOOD COUNT 5.8 x10^3/uL (4.8-10.8)
[2019-07-23 22:06] LABS: ALBUMIN 3.3 g/dL (3.2-5.5); ALBUMIN/GLOBULIN RATIO 1.1 (1.0-2.2); BILIRUBIN,TOTAL 0.6 mg/dL (0.2-1.0); CALCIUM 8.7 mg/dL (8.5-10.3); TOTAL PROTEIN 6.4 g/dL (6.7-8.2)
[2019-07-23] MEDS ORDERED: HEPARIN 25000UNITS/500ML (D5W) 25,000 UNIT/500 ML BAG IV STA (23:30)
[2019-07-23 23:56] LABS: INR 1.1 (0.8-1.2); PT - PROTHROMBIN TIME 12.3 secs (9.9-12.6)
[2019-07-23] MEDS ORDERED: NITROGLYCERIN SL 0.4 MG TABLET SL STA (23:56)
[2019-07-24 00:03] LABS: PARTIAL THROMBOPLASTIN TIME 29.4 secs (24.9-33.3)
[2019-07-24 00:06] VITALS: BP 127/74
== END 2019-07-24 00:48 | disposition short-term general hospital (02) ==
LOC: EDUNIT# → ED 21:23
DX: I47.2 Ventricular tachycardia (principal); R07.89 Other chest pain; I44.4 Left anterior fascicular block; M25.512 Pain in left shoulder; M54.2 Cervicalgia; I10 Essential (primary) hypertension; I25.2 Old myocardial infarction; Z95.5 Presence of coronary angioplasty implant and graft; Z79.82 Long term (current) use of aspirin
CPT/HCPCS: 36415; 80053; 83690; 84484; 85025; 85610; 85730; 93005; 96365; 99284; 99285; A9270

== ENCOUNTER 2019-07-24 00:42 | Outpatient (CLI) | payer MEDICARE, OTHER | END 2019-07-24 00:43 | disposition short-term general hospital (02) | LOC: EMS 00:42 | PROVIDERS: ATTEND Surgery | DX: I47.2 Ventricular tachycardia (principal) | CPT/HCPCS: A0425; A0427 ==

== ENCOUNTER 2019-09-07 14:09 | Outpatient (CLI) | payer MEDICARE, OTHER | END 2019-09-07 14:10 | disposition short-term general hospital (02) | LOC: EMS 14:09 | PROVIDERS: ATTEND Surgery | DX: R07.9 Chest pain, unspecified (principal) | CPT/HCPCS: A0425; A0429 ==

== ENCOUNTER 2019-09-26 07:38 | Outpatient (CLI) | payer MEDICARE, OTHER ==
[2019-09-26 13:12] LABS: CHOL/HDL RATIO 1.9 (<5.0); CHOLESTEROL 143 mg/dL; HDL CHOLESTEROL 74 mg/dL; LDL CHOLESTEROL,CALCULATED 60 mg/dL; LDL/HDL RATIO 0.8 (<3.6); VLDL CHOLESTEROL 9 mg/dL
[2019-09-26 13:21] LABS: ALBUMIN 3.5 g/dL (3.2-5.5); ALBUMIN/GLOBULIN RATIO 1.3 (1.0-2.2); BILIRUBIN,TOTAL 0.6 mg/dL (0.2-1.0); CALCIUM 8.6 mg/dL (8.5-10.3); CREATININE 1.1 mg/dL (0.6-1.2); TOTAL PROTEIN 6.3 g/dL (6.7-8.2)
[2019-09-26 13:22] LABS: BASOPHILS % (AUTO) 0.8 %; EOSINOPHILS # (AUTO) 0.3 10^3/uL (0.0-0.7); EOSINOPHILS % (AUTO) 5.4 %; HGB - HEMOGLOBIN 13.2 g/dL (14.0-18.0); LYMPHOCYTES # (AUTO) 1.2 10^3/uL (1.5-3.5); MEAN CORPUSCULAR HEMOGLOBIN 30.7 pg (27.0-31.0); MEAN CORPUSCULAR VOLUME 99.1 fL (80.0-94.0); MEAN PLATELET VOLUME 11.3 fL (7.4-11.4); MONOCYTES # (AUTO) 0.4 10^3/uL (0.0-1.0); MONOCYTES % (AUTO) 8.5 %; NEUTROPHILS # (AUTO) 3.2 10^3/uL (1.5-6.6); NEUTROPHILS % (AUTO) 62.1 %; PLT - PLATELET COUNT 158 10^3/uL (130-450); RED CELL DISTRIBUTION WIDTH 13.5 % (12.0-15.0); WHITE BLOOD COUNT 5.2 x10^3/uL (4.8-10.8)
[2019-09-26 14:16] LABS: FREE T4 (FREE THYROXINE) 0.79 ng/dL (0.58-1.64)
== END 2019-09-26 23:58 | disposition home or self-care (01) ==
LOC: LAB.WCP 07:38
PROVIDERS: ATTEND Internal Medicine
DX: E78.5 Hyperlipidemia, unspecified (principal); I20.0 Unstable angina; I35.0 Nonrheumatic aortic (valve) stenosis; I10 Essential (primary) hypertension
CPT/HCPCS: 36415; 80053; 80061; 83721; 84439; 84443; 85025

== ENCOUNTER 2020-01-02 07:00 | Outpatient (CLI) | payer MEDICARE, OTHER ==
[2020-01-02 13:10] LABS: CALCIUM 8.8 mg/dL (8.5-10.3)
[2020-01-02 13:32] LABS: HGB - HEMOGLOBIN 13.8 g/dL (14.0-18.0); MEAN CORPUSCULAR HEMOGLOBIN 31.5 pg (27.0-31.0); MEAN CORPUSCULAR HGB CONC 32.1 g/dL (32.0-36.0); MEAN CORPUSCULAR VOLUME 98.2 fL (80.0-94.0); MEAN PLATELET VOLUME 10.9 fL (7.4-11.4); RED BLOOD COUNT 4.38 10^6/uL (4.70-6.10); RED CELL DISTRIBUTION WIDTH 13.2 % (12.0-15.0); WHITE BLOOD COUNT 5.9 x10^3/uL (4.8-10.8)
[2020-01-02 14:54] LABS: FREE T4 (FREE THYROXINE) 0.78 ng/dL (0.58-1.64)
== END 2020-01-02 23:59 | disposition home or self-care (01) ==
LOC: LAB.WCP 07:00
PROVIDERS: ATTEND Family Medicine
DX: R51 Headache (principal); D12.6 Benign neoplasm of colon, unspecified; I35.0 Nonrheumatic aortic (valve) stenosis; I21.3 ST elevation (STEMI) myocardial infarction of unspecified site; E03.9 Hypothyroidism, unspecified
CPT/HCPCS: 36415; 80048; 84439; 84443; 85027; 85651

== ENCOUNTER 2020-02-02 21:32 | Outpatient (CLI) | payer MEDICARE, OTHER | END 2020-02-02 21:33 | disposition short-term general hospital (02) | LOC: EMS 21:32 | PROVIDERS: ATTEND Surgery | DX: R07.89 Other chest pain (principal) | CPT/HCPCS: A0425; A0429 ==

== ENCOUNTER 2020-05-31 19:02 | Emergency (ER) | payer MEDICARE, OTHER ==
[2020-05-31 19:09] VITALS: BP 147/89
--- NOTE | 2020-05-31 19:17 | ED Physician Documentation ---
History of Present Illness - Stated complaint Stated Complaint: R ARM LAC - Chief complaint Chief Complaint: Laceration - History obtained from History obtained from: Patient - History of Present Illness Timing: Today Pain level max: 0 Pain level now: 0 - Additonal information Additional information: 84-year-old male presents to the emergency department with a small skin tear on the right forearm. He states it occurred when he was putting his tools away. Tetanus up-to-date. He is right-handed. No active bleeding. Nothing makes it better or worse Review of Systems Constitutional: denies: Fever, Chills GI: denies: Vomiting, Diarrhea Skin: denies: Rash Musculoskeletal: denies: Neck pain, Back pain Neurologic: denies: Headache PD PAST MEDICAL HISTORY - Past Medical History Cardiovascular: Hypertension, [place], Other Respiratory: None Endocrine/Autoimmune: None GI: Colon polyps : Frequency HEENT: Chronic hearing loss Psych: None Musculoskeletal: Rheumatoid arthritis, Other Derm: None - Past Surgical History Past Surgical History: Yes Ortho: Other Cardiovascular: Coronary stent HEENT: Tonsil/Adenoidectomy - Present Medications Home Medications: Ambulatory Orders Medication Instructions Recorded Confirmed Ascorbic Acid [Vitamin C] 1 tab PO DAILY 02/21/15 06/24/19 Aspirin [Aspir 81] 1 tab PO DAILY 02/21/15 06/24/19 Losartan [Cozaar] 100 mg PO DAILY 02/21/15 06/24/19 Metoprolol Tartrate [Lopressor] 25 tab PO DAILY 02/21/15 06/24/19 Multivitamin [Multivitamins] 1 tab PO DAILY 02/21/15 06/24/19 Simvastatin [Zocor] 20 mg PO DAILY 02/21/15 06/24/19 metroNIDAZOLE 0.75% GEL 1 applic TOP BID 02/21/15 06/24/19 Latanoprost 0.005% Ophth Drops 1 drops OPTH QPM 08/07/15 06/24/19 [Xalatan Ophth Drops] Calcium Carbonate/Vitamin D3 500 mg PO DAILY 07/23/19 07/23/19 [Calcium 250-Vit D3 125 Tablet] Cholecalciferol (Vitamin D3) 1,000 mg PO DAILY 07/23/19 07/23/19 [Vitamin D3] Minocycline HCl 100 mg PO DAILY 07/23/19 07/23/19 Nitroglycerin 0.4 mg SL PRN PRN 07/23/19 07/23/19 [place]-3/Dha/Epa/Fish Oil [Fish Oil 100 mg PO DAILY 07/23/19 07/23/19 1,000 mg Softgel] - Allergies Allergies/Adverse Reactions: Allergies Allergy/AdvReac Type Severity Reaction Status Date / Time morphine AdvReac Severe bradycardia Verified 05/31/20 19:09 - Social History Does the pt smoke?: No Smoking Status: Never smoker Does the pt drink ETOH?: No Does the pt have substance abuse?: No - Immunizations Immunizations are current?: No - POLST Patient has POLST: No PD ED PE NORMAL - Vitals Vital signs reviewed: Yes - General General: Alert and oriented X 3, No acute distress - HEENT HEENT: Moist mucous membranes - Derm Derm: Warm and dry - Extremities Extremities: Other (1 cm skin tear to the right forearm. No active bleeding. Neurovascular intact. Well approximated) - Neuro Neuro: Alert and oriented X 3 Results - Vitals Vitals: Vital Signs - 24 hr 05/31/20 19:08 Temperature 37.2 C Heart Rate 78 Respiratory 16 Rate Blood Pressure 147/89 H O2 Saturation 98 Oxygen O2 Source Room air Procedures - Laceration (location) Right forearm Length in cm: 1 Wound type: Linear, Superficial, Clean Neurovascular status: Sensory intact, Motor intact, Vascular intact Wound Preparation: Irrigated copiously NS Skin layer closure: Dermabond, Steri strips Other: Patient tolerated well, No complications, Neurovascular intact, Tetanus UTD Complexity: Simple PD MEDICAL DECISION MAKING - ED course Complexity details: considered differential, d/w patient ED course: Dermabond and Steri-Strips were used to reapproximate the wound. Tolerated well. No further care needed at this time. Wound was cleansed with normal saline prior to bandaging. Warnings of infection and instructions on wound care given at bedside. Also counseled on how to minimize scarring. Patient counseled regarding signs and symptoms for which I believe and urgent re-evaluation would be necessary. Patient with good understanding of and agreement to plan and is comfortable going home at this time This document was made in part using voice recognition software. While efforts are made to proofread this document, sound alike and grammatical errors may occur. Departure - Departure Disposition: 01 Home, Self Care Clinical Impression: Skin tear Condition: Good Instructions: ED Avulsion Dermal Follow-Up: Joao Yates MD [Primary Care Provider] - As Needed Comments: The glue and Steri-Strips will fall off in about a week. Return if you worsen. Do not apply any ointment as this may dissolve the glue. Follow-up with your doctor as needed for further care. Return if you notice redness, swelling or drainage from the wound.
== END 2020-05-31 19:15 | disposition home or self-care (01) ==
LOC: ED 19:02
DX: S51.811A Laceration without foreign body of right forearm, initial encounter (principal); X58.XXXA Exposure to other specified factors, initial encounter; Y93.89 Activity, other specified; I10 Essential (primary) hypertension; Z79.82 Long term (current) use of aspirin
CPT/HCPCS: 12001; 99282

== ENCOUNTER 2020-07-30 07:00 | Outpatient (CLI) | payer MEDICARE, OTHER ==
[2020-07-30 12:31] LABS: BASOPHILS # (AUTO) 0.1 10^3/uL (0.0-0.1); BASOPHILS % (AUTO) 0.9 %; EOSINOPHILS # (AUTO) 0.5 10^3/uL (0.0-0.7); HGB - HEMOGLOBIN 12.8 g/dL (14.0-18.0); LYMPHOCYTES # (AUTO) 1.5 10^3/uL (1.5-3.5); LYMPHOCYTES % (AUTO) 25.7 %; MEAN CORPUSCULAR HEMOGLOBIN 31.1 pg (27.0-31.0); MEAN CORPUSCULAR HGB CONC 31.1 g/dL (32.0-36.0); MEAN CORPUSCULAR VOLUME 99.8 fL (80.0-94.0); MEAN PLATELET VOLUME 11.4 fL (7.4-11.4); MONOCYTES # (AUTO) 0.5 10^3/uL (0.0-1.0); MONOCYTES % (AUTO) 8.8 %; NEUTROPHILS # (AUTO) 3.2 10^3/uL (1.5-6.6); NEUTROPHILS % (AUTO) 56.4 %; PLT - PLATELET COUNT 156 10^3/uL (130-450); RED BLOOD COUNT 4.12 10^6/uL (4.70-6.10); RED CELL DISTRIBUTION WIDTH 13.3 % (12.0-15.0); WHITE BLOOD COUNT 5.7 x10^3/uL (4.8-10.8)
[2020-07-30 12:59] LABS: ALBUMIN 3.4 g/dL (3.2-5.5); ALBUMIN/GLOBULIN RATIO 1.2 (1.0-2.2); ALKALINE PHOSPHATASE 79 IU/L (42-121); ALT ALANINE AMINOTRANSFERASE 24 IU/L (10-60); AST ASPARTATE AMINOTRANSFERASE 27 IU/L (10-42); BILIRUBIN,TOTAL 0.7 mg/dL (0.2-1.0); BUN - BLOOD UREA NITROGEN 30 mg/dL (6-20); CALCIUM 9.1 mg/dL (8.5-10.3); CARBON DIOXIDE - CO2 27 mmol/L (21-32); CHLORIDE 111 mmol/L (101-111); CHOL/HDL RATIO 1.8 (<5.0); CHOLESTEROL 129 mg/dL; CREATININE 1.1 mg/dL (0.6-1.2); GLUCOSE 107 mg/dL (70-100); HDL CHOLESTEROL 72 mg/dL; SODIUM 143 mmol/L (135-145); TOTAL PROTEIN 6.3 g/dL (6.7-8.2)
[2020-07-30 13:44] LABS: FREE T4 (FREE THYROXINE) 0.79 ng/dL (0.58-1.64)
== END 2020-07-30 23:59 | disposition home or self-care (01) ==
LOC: LAB.WCP 07:00
PROVIDERS: ATTEND Family Medicine
DX: I25.10 Atherosclerotic heart disease of native coronary artery without angina pectoris (principal); R00.2 Palpitations
CPT/HCPCS: 36415; 80053; 80061; 83721; 84439; 84443; 85025

== ENCOUNTER 2020-09-01 16:02 | Outpatient (CLI) | payer MEDICARE, OTHER ==
--- NOTE | 2020-09-01 16:04 | XRAY Report ---
PROCEDURE: Chest 2 View X-Ray INDICATIONS: COUGH TECHNIQUE: 2 view(s) of the chest. COMPARISON: Chest x-ray dated 06.24.2019 FINDINGS: Surgical changes and devices: None. Lungs and pleura: No pleural effusions or pneumothorax. Mild diffuse chronic appearing interstitial manner opacity. Lungs are otherwise clear. Mediastinum: Mediastinal contours are normal. Heart size is normal. Bones and chest wall: No suspicious bony abnormalities. Soft tissues appear unremarkable. IMPRESSION: 1. Mild chronic interstitial lung disease. No acute process. Reviewed by: Ghulam Hunter MD on 09/01/2020 4:03 PM PDT Approved by: Ghulam Hunter MD on 09/01/2020 4:03 PM PDT Station ID: [id number]
== END 2020-09-01 23:59 | disposition home or self-care (01) ==
LOC: DI.WCP 16:02
PROVIDERS: ATTEND Family Medicine
DX: R05 Cough (principal); J84.9 Interstitial pulmonary disease, unspecified
CPT/HCPCS: 71046

== ENCOUNTER 2020-09-11 09:25 | Outpatient (CLI) | payer MEDICARE, OTHER ==
--- NOTE | 2020-09-11 11:37 | CT Report ---
PROCEDURE: CHEST WO INDICATIONS: INTERSTITIAL LUNG DISEASE TECHNIQUE: Noncontrast 5 mm thick sections acquired from the pulmonary apices to the posterior costophrenic angl es. 7 mm thick coronal and sagittal MIP reformats were then acquired. For radiation dose reduction, the following was used: automated exposure control, adjustment of mA and/or kV according to patient size. COMPARISON: CT of the chest 09/17/2016 and chest plain film 06/24/2019 reviewed. FINDINGS: Image quality: Excellent. Lungs and pleura: No acute air space opacities are found that would indicate presence of underlying pneumonia or neoplasm. There is a slight degree of interstitial prominence likely reflecting a prior smoking history but no area of pulmonary fibrosis has developed.. No pleural effusions or pneumothor ax. Central and peripheral airways are patent and normal in caliber. Mediastinum: Heart size is normal. No pericardial effusion. No mediastinal adenopathy by size crit eria. Thoracic aorta and central pulmonary arteries are normal in size. Esophagus is normal in kenyatta karin. No hiatal hernia. Bones and chest wall: No suspicious bony lesions. No vertebral body compression fractures. No axil stevenson or supraclavicular adenopathy by size criteria. The thyroid is normal in size. Abdomen: Visualized upper abdominal solid organs and bowel loops appear normal in the absence of con trast except for the presence of a low-density 2.5 cm maximal dimension right adrenal adenoma which w as previously present on CT scanning from August 2016, and has not significantly enlarged.. IMPRESSION: Previously present 2.5 cm adrenal adenoma on the right, without enlargement from August 2016. There is a slight interstitial prominence within the lung parenchyma likely reflecting a prior smoking hist ory but no sign of alveolitis or pulmonary fibrosis has developed. Reviewed by: Ezequiel Torres MD on 09/11/2020 11:35 AM PDT Approved by: Ezequiel Torres MD on 09/11/2020 11:35 AM PDT Station ID: [id number]
== END 2020-09-11 09:26 | disposition home or self-care (01) ==
LOC: DI 09:25
PROVIDERS: ATTEND Family Medicine
DX: J84.9 Interstitial pulmonary disease, unspecified (principal); D35.01 Benign neoplasm of right adrenal gland
CPT/HCPCS: 71250

== ENCOUNTER 2020-09-21 09:07 | Outpatient (CLI) | payer MEDICARE, OTHER | END 2020-09-21 09:08 | disposition home or self-care (01) | LOC: RT 09:07 | PROVIDERS: ATTEND Family Medicine | DX: J84.9 Interstitial pulmonary disease, unspecified (principal) | CPT/HCPCS: 94010; 94729 ==

== ENCOUNTER 2020-10-29 08:00 | Outpatient (CLI) | payer MEDICARE, OTHER | END 2020-10-29 23:59 | disposition home or self-care (01) | LOC: LAB.WCP 08:00 | PROVIDERS: ATTEND Urology | DX: C67.9 Malignant neoplasm of bladder, unspecified (principal) | CPT/HCPCS: 36415; 82565; 84520 ==

== ENCOUNTER 2020-11-09 08:47 | Outpatient (CLI) | payer MEDICARE, OTHER ==
[2020-11-09] MEDS ORDERED: IOVERSOL 320 100 ML VIAL IVP ONE ×2 (09:01→09:18)
--- NOTE | 2020-11-09 11:32 | CT Report ---
PROCEDURE: IVP INDICATIONS: BLADDER CA CONTRAST: IV CONTRAST: Optiray 320 ml: 140 PO CONTRAST: *NO PO CONTRAST TECHNIQUE: After the administration of intravenous contrast, 5 mm thick sections acquired from the diaphragms to the symphysis. 5 mm thick coronal and sagittal reformats were acquired. For radiation dose reducti on, the following was used: automated exposure control, adjustment of mA and/or kV according to angeli ent size. COMPARISON: 05/15/2018 FINDINGS: Image quality: Excellent. Lung bases: Hyperinflation and scattered groundglass opacities at the lung bases. Heavy visualized co ronary artery calcification. Heart size is normal. Urinary system: Both kidneys are normal in size and enhancement. 3 punctate upper pole left nonobstr ucting intrarenal calcifications. No suspicious renal cortical mass. Numerous small parapelvic cysts bilaterally. No hydronephrosis. Contrast-filled renal calyces are normal in morphology. Contrast fi lled portions of both ureters are normal in caliber. Urinary bladder is only partially distended. The posterior and right lateral wall is diffusely thicke david with mild irregularity. A discrete nodule is not identified. The left lateral wall previously dem onstrating nodule is no longer thickened. The prostate gland is moderately enlarged with coarse centr al calcification. Moderate-sized right hydrocele is partially imaged. Solid organs: Liver and spleen are normal in size and enhancement. Gallbladder is decompressed. Bi liary system is non dilated. Pancreas enhances normally. 2.3 cm right adrenal nodule with low densit y consistent with an adenoma. Peritoneum and bowel: Stomach and small bowel loops are within normal limits. There is wall thickenin g and several diverticula involving the sigmoid colon without surrounding inflammatory change. No sharon e fluid or air. Nodes and vessels: No retroperitoneal or mesenteric adenopathy by size criteria. Aorta and inferior vena cava are normal in size. Moderate abdominal aortic calcification. Abdominal wall: No ventral hernias. Pelvis: No pathologic free pelvic fluid. No inguinal hernias or adenopathy. Bones: No suspicious bony lesions. Osteopenia throughout the bones and degenerative cystic changes i n both hips. No vertebral body compression fractures. IMPRESSION: 1. Urinary bladder wall thickening is likely partially related to prior treatment and under distentio n. No suspicious polypoid mass. 2. No evidence of upper urinary tract neoplasm. 3. Stable right adrenal adenoma. 4. Chronic sigmoid diverticulosis. Reviewed by: Yesi Alegria MD on 11/09/2020 11:31 AM PST Approved by: Yesi Alegria MD on 11/09/2020 11:31 AM PST Station ID: [id number]
== END 2020-11-09 08:48 | disposition home or self-care (01) ==
LOC: DI 08:47
PROVIDERS: ATTEND Urology
DX: C67.9 Malignant neoplasm of bladder, unspecified (principal); K57.30 Diverticulosis of large intestine without perforation or abscess without bleeding
CPT/HCPCS: 74178; Q9967

== ENCOUNTER 2021-01-07 08:00 | Outpatient (CLI) | payer MEDICARE, OTHER ==
[2021-01-07 18:37] LABS: BASOPHILS # (AUTO) 0.1 10^3/uL (0.0-0.1); BASOPHILS % (AUTO) 0.8 %; EOSINOPHILS # (AUTO) 0.4 10^3/uL (0.0-0.7); EOSINOPHILS % (AUTO) 5.5 %; HGB - HEMOGLOBIN 13.6 g/dL (14.0-18.0); LYMPHOCYTES # (AUTO) 1.1 10^3/uL (1.5-3.5); LYMPHOCYTES % (AUTO) 17.7 %; MEAN CORPUSCULAR HEMOGLOBIN 31.4 pg (27.0-31.0); MEAN CORPUSCULAR HGB CONC 31.5 g/dL (32.0-36.0); MEAN CORPUSCULAR VOLUME 99.8 fL (80.0-94.0); MEAN PLATELET VOLUME 11.7 fL (7.4-11.4); MONOCYTES # (AUTO) 0.7 10^3/uL (0.0-1.0); MONOCYTES % (AUTO) 10.6 %; NEUTROPHILS # (AUTO) 4.1 10^3/uL (1.5-6.6); NEUTROPHILS % (AUTO) 65.1 %; PLT - PLATELET COUNT 146 10^3/uL (130-450); RED BLOOD COUNT 4.33 10^6/uL (4.70-6.10); RED CELL DISTRIBUTION WIDTH 12.9 % (12.0-15.0); WHITE BLOOD COUNT 6.3 x10^3/uL (4.8-10.8)
[2021-01-07 19:03] LABS: ALBUMIN 3.7 g/dL (3.2-5.5); ALBUMIN/GLOBULIN RATIO 1.2 (1.0-2.2); ALKALINE PHOSPHATASE 86 IU/L (42-121); ALT ALANINE AMINOTRANSFERASE 24 IU/L (10-60); AST ASPARTATE AMINOTRANSFERASE 30 IU/L (10-42); BILIRUBIN,TOTAL 1.1 mg/dL (0.2-1.0); BUN - BLOOD UREA NITROGEN 18 mg/dL (6-20); CALCIUM 9.2 mg/dL (8.5-10.3); CARBON DIOXIDE - CO2 26 mmol/L (21-32); CHLORIDE 106 mmol/L (101-111); CHOL/HDL RATIO 1.7 (<5.0); CHOLESTEROL 142 mg/dL; CREATININE 1.1 mg/dL (0.6-1.2); GLUCOSE 106 mg/dL (70-100); HDL CHOLESTEROL 82 mg/dL; LDL CHOLESTEROL,CALCULATED 48 mg/dL; LDL/HDL RATIO 0.6 (<3.6); TOTAL PROTEIN 6.8 g/dL (6.7-8.2); VLDL CHOLESTEROL 12 mg/dL
== END 2021-01-07 23:59 | disposition home or self-care (01) ==
LOC: LAB.WCP 08:00
PROVIDERS: ATTEND Family Medicine
DX: I25.10 Atherosclerotic heart disease of native coronary artery without angina pectoris (principal)
CPT/HCPCS: 36415; 80053; 80061; 83721; 85025

== ENCOUNTER 2021-07-02 08:00 | Outpatient (CLI) | payer MEDICARE, OTHER ==
[2021-07-02 12:02] LABS: BASOPHILS % (AUTO) 0.5 %; EOSINOPHILS # (AUTO) 0.3 10^3/uL (0.0-0.7); EOSINOPHILS % (AUTO) 4.8 %; HCT - HEMATOCRIT 39.7 % (42.0-52.0); LYMPHOCYTES % (AUTO) 16.6 %; MEAN CORPUSCULAR HEMOGLOBIN 32.5 pg (27.0-31.0); MEAN CORPUSCULAR HGB CONC 32.7 g/dL (32.0-36.0); MEAN CORPUSCULAR VOLUME 99.3 fL (80.0-94.0); MEAN PLATELET VOLUME 11.2 fL (7.4-11.4); MONOCYTES # (AUTO) 0.5 10^3/uL (0.0-1.0); MONOCYTES % (AUTO) 8.7 %; NEUTROPHILS # (AUTO) 4.2 10^3/uL (1.5-6.6); NEUTROPHILS % (AUTO) 69.2 %; PLT - PLATELET COUNT 147 10^3/uL (130-450); RED CELL DISTRIBUTION WIDTH 13.1 % (12.0-15.0)
[2021-07-02 12:21] LABS: ALBUMIN 3.5 g/dL (3.2-5.5); ALBUMIN/GLOBULIN RATIO 1.2 (1.0-2.2); CALCIUM 9.2 mg/dL (8.5-10.3); CREATININE 0.9 mg/dL (0.6-1.2); POTASSIUM 4.3 mmol/L (3.5-5.0); TOTAL PROTEIN 6.5 g/dL (6.7-8.2)
== END 2021-07-02 23:59 | disposition home or self-care (01) ==
LOC: LAB.N 08:00
PROVIDERS: ATTEND Nurse Practitioner
DX: R10.9 Unspecified abdominal pain (principal)
CPT/HCPCS: 36415; 80053; 82150; 83690; 85025; 87077; 87086; 87181

== ENCOUNTER 2021-07-02 10:06 | Outpatient (CLI) | payer MEDICARE, OTHER ==
--- NOTE | 2021-07-02 13:17 | XRAY Report ---
PROCEDURE: Lumbar Spine 2 View INDICATIONS: FLANK PAIN TECHNIQUE: 3 views of the lumbar spine were acquired. COMPARISON: None. FINDINGS: Bones: Multilevel degenerative changes. No vertebral body height loss. Grade 1 anterolisthesis of L4 over L5. T11-12 and T12-L1 have disc space narrowing and endplate degenerative changes consistent wit h disc disease. L4-5 also has mild disc space narrowing consistent with disc disease. The sacroiliac joints are normal. The facet joints from L3 through S1 demonstrate facet arthrosis. There is a probab le pars defect at L5. Soft tissues: Overlying bowel gas pattern demonstrates increased bowel consistent with constipation. No suspicious soft tissue calcifications. IMPRESSION: 1. Multilevel degenerative changes and facet arthrosis. 2. 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 3. Multilevel disc disease including L4-5, T11-12, and T12-L1. Reviewed by: Kaushik Maza on 07/02/2021 1:16 PM PDT Approved by: Kaushik Maza on 07/02/2021 1:16 PM PDT Station ID: [id number]
== END 2021-07-02 23:59 | disposition home or self-care (01) ==
LOC: DI.N 10:06
PROVIDERS: ATTEND Nurse Practitioner
DX: M47.816 Spondylosis without myelopathy or radiculopathy, lumbar region (principal); M43.16 Spondylolisthesis, lumbar region; M51.36 Other intervertebral disc degeneration, lumbar region; M51.34 Other intervertebral disc degeneration, thoracic region; R10.9 Unspecified abdominal pain
CPT/HCPCS: 36415; 80053; 82150; 83690; 85025; 87077; 87086; 87181

== ENCOUNTER 2021-08-17 07:00 | Outpatient (CLI) | payer MEDICARE, OTHER | END 2021-08-17 23:59 | disposition home or self-care (01) | LOC: LAB 07:00 | PROVIDERS: ATTEND Physician Assistant Medical | DX: R30.0 Dysuria (principal) | CPT/HCPCS: 87086 ==

== ENCOUNTER 2021-08-21 11:47 | Outpatient (CLI) | payer MEDICARE, OTHER | END 2021-08-21 11:48 | disposition critical access hospital (66) | LOC: EMS 11:47 | DX: R51.9 Headache, unspecified (principal); R47.02 Dysphasia; R29.810 Facial weakness; R29.898 Other symptoms and signs involving the musculoskeletal system; R61 Generalized hyperhidrosis; R55 Syncope and collapse | CPT/HCPCS: A0425; A0427 ==

== ENCOUNTER 2021-08-21 12:34 | Inpatient (IN) | payer MEDICARE, OTHER ==
[2021-08-21] MEDS ORDERED: IOVERSOL 320 100 ML VIAL IVP ONE (13:12)
--- NOTE | 2021-08-21 13:12 | ED Physician Documentation ---
History of Present Illness - Stated complaint Stated Complaint: CODE STROKE - Chief complaint Chief Complaint: Neuro - Additonal information Additional information: 85-year-old male presents the emergency department via EMS as a code stroke. This gentleman was at home. He was reportedly not feeling well felt lightheaded and dizzy. 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 When he felt better he got back up to peel the pairs again but again was lightheaded so he sat down. He had a syncopal episode. When he woke up EMS was present. 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 EMS was summoned. When they arrived he had a blood pressure of 76 systolic as well as a heart rate in the 40s. This resolved with 400 mils of normal saline. Blood glucose 138 mg/dl. By the time that the patient had been transported to the emergency department the facial droop and arm or leg weakness had fully resolved. He presents with an NIHSS score of 0. This gentleman denies any previous history of syncope in the past. He did have myocardial infarction in 2011 status post stenting x3. He denies that he was feeling any chest pain prior to his syncopal event. He also has a history of bladder cancer. Recently treated at [facility] about 4 months ago with chemotherapy delivered directly to the bladder tissue He has been well recently. No recent cough cold or congestion skin. Patient is fully vaccinated for COVID-19. Review of Systems Constitutional: denies: Fever, Chills Eyes: reports: Reviewed and negative Ears: reports: Reviewed and negative Nose: reports: Reviewed and negative Throat: reports: Reviewed and negative Cardiac: denies: Chest pain / pressure, Palpitations, Pedal edema, Calf pain Respiratory: denies: Dyspnea, Cough GI: denies: Abdominal Pain, Nausea, Vomiting : denies: Dysuria, LMP Skin: denies: Rash, Lesions Musculoskeletal: reports: Reviewed and negative Neurologic: reports: Focal weakness, Syncope, LOC. denies: Headache, Head injury Psychiatric: reports: Reviewed and negative Endocrine: reports: Reviewed and negative PD PAST MEDICAL HISTORY - Past Medical History Cardiovascular: Hypertension, NM, Other Respiratory: None Endocrine/Autoimmune: None GI: Colon polyps : Frequency HEENT: Chronic hearing loss Psych: None Musculoskeletal: Rheumatoid arthritis, Other Derm: None - Past Surgical History Past Surgical History: Yes Ortho: Other Cardiovascular: Coronary stent HEENT: Tonsil/Adenoidectomy - Present Medications Home Medications: Ambulatory Orders Medication Instructions Recorded Confirmed Ascorbic Acid [Vitamin C] 1 tab PO DAILY 02/21/15 08/21/21 Aspirin [Aspir 81] 1 tab PO DAILY 02/21/15 06/24/19 Losartan [Cozaar] 100 mg PO DAILY 02/21/15 08/21/21 Metoprolol Tartrate [Lopressor] 25 tab PO DAILY 02/21/15 08/21/21 Multivitamin [Multivitamins] 1 tab PO DAILY 02/21/15 06/24/19 Simvastatin [Zocor] 20 mg PO DAILY 02/21/15 06/24/19 metroNIDAZOLE 0.75% GEL [Flagyl 1 applic TOP BID 02/21/15 08/21/21 Gel] Latanoprost 0.005% Ophth Drops 1 drops OPTH QPM 08/07/15 08/21/21 [Xalatan Ophth Drops] Calcium Carbonate/Vitamin D3 500 mg PO DAILY 07/23/19 07/23/19 [Calcium 250-Vit D3 125 Tablet] Cholecalciferol (Vitamin D3) 1,000 mg PO DAILY 07/23/19 07/23/19 [Vitamin D3] Minocycline HCl 100 mg PO DAILY 07/23/19 08/21/21 Nitroglycerin 0.4 mg SL PRN PRN 07/23/19 08/21/21 [place]-3/Dha/Epa/Fish Oil [Fish Oil 100 mg PO DAILY 07/23/19 07/23/19 1,000 mg Softgel] Atorvastatin Calcium [Lipitor] 1 tab PO DAILY 08/21/21 08/21/21 Isosorbide Mononitrate ER [Imdur] 1 tab PO DAILY 08/21/21 08/21/21 amLODIPine [Norvasc] 2.5 mg PO DAILY 08/21/21 08/21/21 - Allergies Allergies/Adverse Reactions: Allergies Allergy/AdvReac Type Severity Reaction Status Date / Time morphine AdvReac Severe bradycardia Verified 08/21/21 12:53 - Social History Does the pt smoke?: No Smoking Status: Never smoker Does the pt drink ETOH?: No Does the pt have substance abuse?: No - Immunizations Immunizations are current?: No - POLST Patient has POLST: No PD ED PE EXPANDED - General General: Alert, No acute distress, Well developed/nourished - HEENT HEENT: PERRL, EOMI, Pharynx normal - Eyes Eyes: PERRL - Neck Neck: Supple w/out meningeal sx. No: Adenopathy - Cardiac Cardiac: Moisés, Murmur Present, Radial strong equal, Pedal strong equal, Cap refill < 2 sec - Respiratory Respiratory: Clear to ausultation ruthie. No: Distress, Labored - Abdomen Abdomen: Normal Bowel sounds. No: Tender to palpation - Extremities Extremities: Normal. No: Deformity, Tenderness - Neuro Neuro: Alert and Oriented X 3, CNII-XII intact, Normal finger nose, Normal speech - GCS Eye Opening: Spontaneous Motor: Obeys Commands Verbal: Oriented Total: 15 Results - Vitals Vitals: Vital Signs - 24 hr 08/21/21 08/21/21 08/21/21 12:33 13:23 13:30 Temperature 36.4 C L Heart Rate 51 L 54 L 54 L Respiratory 10 L 13 17 Rate Blood Pressure 114/59 L 114/68 112/61 O2 Saturation 94 96 100 08/21/21 14:03 Temperature Heart Rate 60 Respiratory 21 Rate Blood Pressure 132/64 H O2 Saturation 97 Oxygen O2 Source Room air - EKG (time done) 253 Rate: Rate (enter#) (48) Rhythm: Sinus bradycardia [place]: LAD Intervals: Normal HI. No: Prolonged QT QRS: Poor R wave progression Ischemia: Normal ST segments Compare to prior EKG: Unchanged from prior EKG (with exception of mild bradycardia) - Labs Labs: Laboratory Tests 08/21/21 08/21/21 08/21/21 13:00 13:08 13:08 WBC 5.5 RBC 3.87 L Hgb 12.6 L Hct 38.7 L MCV 100.0 H MCH 32.6 H MCHC 32.6 RDW 13.1 Plt Count 145 MPV 10.5 Neut # (Auto) 3.9 Lymph # (Auto) 0.8 L [place] # (Auto) 0.5 Eos # (Auto) 0.2 Baso # (Auto) 0.0 Absolute Nucleated RBC 0.00 Nucleated RBC % 0.0 PT 12.6 INR 1.1 Sodium Potassium Chloride Carbon Dioxide Anion Gap BUN Creatinine Estimated GFR (MDRD) Glucose Calcium Total Bilirubin AST ALT Alkaline Phosphatase Troponin I High Sens Total Protein Albumin Globulin Albumin/Globulin Ratio Lipase TSH Free T4 0.82 08/21/21 08/21/21 08/21/21 13:08 13:08 13:08 WBC RBC Hgb Hct MCV MCH MCHC RDW Plt Count MPV Neut # (Auto) Lymph # (Auto) [place] # (Auto) Eos # (Auto) Baso # (Auto) Absolute Nucleated RBC Nucleated RBC % PT INR Sodium 143 Potassium 4.5 Chloride 108 Carbon Dioxide 26 Anion Gap 9.0 BUN 22 H Creatinine 1.3 H Estimated GFR (MDRD) 52 L Glucose 141 H Calcium 9.0 Total Bilirubin 1.0 AST 30 ALT 27 Alkaline Phosphatase 84 Troponin I High Sens 7.5 Total Protein 5.9 L Albumin 3.5 Globulin 2.4 Albumin/Globulin Ratio 1.5 Lipase 49 TSH 10.88 H Free T4 - Rads (name of study) Angio head Radiology: Final report received (No evidence of large vessel occlusion, aneurysm or vascular malformation. Atherosclerotic calcification results in moderate stenosis in the cavernous ICA bilaterally. moderate atrophy and chronic chronic ischemic change withotu ICH or mass affect) Angio neck Radiology: Final report received (no significant ICA stenosis) PD MEDICAL DECISION MAKING - ED course Complexity details: reviewed results, considered differential, d/w patient ED course: 85-year-old male was brought to the emergency department after a syncopal episode sustained after standing for a longer period of time peeling pears. He did have quite a long lapse in consciousness as he did not wake up until EMS arrived. When he did wake up he did have left-sided facial droop and weakness however that had fully resolved by the time he arrived to the ER. On scene he was hypotensive and bradycardic but after fluids that had also resolved. CT angio of the head and neck did not show any acute intracranial findings. No significant stenosis or lesions. He has been hemodynamically stable here in the emergency department. However he has remained somewhat lightheaded here in the ER, but has bene able to ambulate with some effort. He certainly would benefit from echocardiogram as well as follow-up MRI of this TIA event. I have discussed this case with Dr. Guadalupe who was graciously agreed to admit the patient on an observation status though he will not be able to receive the MRI or echocardiogram until Monday which is approximately 48 hours from now. I have discussed the plan for observation admission with the patient's daughter Digna. All questions answered. Departure - Departure Disposition: ED Place in Observation Clinical Impression: Syncope and collapse, TIA (transient ischemic attack) NIHSS - Time Time: 13:00 - Level of Consciousness Level of consciousness: (1) Not alert, but arousable by minor stimulation to obey, or answer LOC Questions: (0) Answers both Q's correct LOC Commands: (0) Performs both correctly - Gaze Best Gaze: (0) Normal - Visual Visual: (0) No loss - Facial Palsy Facial Palsy: (0) Normal, symmetrical movement - Motor Arms (both separate) Motor Arm (right): (0) No drift Motor Arm (left): (0) No drift - Motor Legs (both separate) Motor Leg (right): (0) No drift Motor Leg (left): (0) No drift - Limb Ataxia Limb Ataxia: (0) Absent - Sensory Sensory: (0) Normal - Best Language Best Language: (0) No aphasia - Dysarthria Dysarthria: (0) Normal - Extinction and Inattention (formally neg Extinction and inattention: (0) No abnormality - Total Score/Results Total Score/Result: 1
--- NOTE | 2021-08-21 13:14 | CT Report ---
PROCEDURE: CT brain without contrast, CT angiogram brain with contrast. INDICATIONS: L sided facial droop CONTRAST: IV CONTRAST: Optiray 320 ml: 80 PO CONTRAST: *NO PO CONTRAST TECHNIQUE: Precontrast 4.5 mm thick angled axial sections acquired from the foramen magnum to the ve rtex. After the administration of intravenous contrast, 1 mm thick sections acquired through the Ci rcle of Son. Postcontrast 4.5 mm thick sections then re-acquired from the foramen magnum to the v ertex. For radiation dose reduction, the following was used: automated exposure control, adjustmen t of mA and/or kV according to patient size. COMPARISON: None FINDINGS: Image quality: Excellent. Anterior circulation: Intracranial internal carotid arteries are normal in size and flow. The flow within the paired anterior cerebral arteries is normal and symmetric. The flow within the middle cer ebral arteries is normal and symmetric. The anterior communicating artery is seen. No aneurysms are seen. The described vascular calcification in the cavernous portions of both internal carotid arter ies results in moderate bilateral stenosis Posterior circulation: Visualized portions of the vertebral arteries demonstrate normal caliber, and join to form a normal appearing basilar artery. Flow within the posterior cerebral arteries is norm al and symmetric. No aneurysms are seen. CSF spaces: Ventricles are normal in size and shape. Basal cisterns are patent. No extra-axial flu id collections. Brain: No midline shift. No intracranial bleeds or masses. [place]-white matter interface appears int act. Moderate atrophy and multifocal white matter chronic ischemic change noted. Skull and face: Calvarium and facial bones appear intact, without suspicious lesions. Sinuses: Visualized sinuses and mastoids are clear. IMPRESSION: No evidence of large vessel occlusion, aneurysm or vascular malformation Atherosclerotic calcification results in moderate stenosis in the cavernous ICA bilaterally Moderate atrophy and chronic ischemic change without intracranial hemorrhage or mass effect Note: Critical results were discussed with Dr. Berrios at 12:10 PM [place] time 08/21/2021 Reviewed by: Owen Pierce MD on 08/21/2021 12:12 PM [facility] Approved by: Owen Pierce MD on 08/21/2021 12:12 PM AKDT Station ID: [id number]
[2021-08-21 13:16] LABS: BASOPHILS % (AUTO) 0.5 %; EOSINOPHILS # (AUTO) 0.2 10^3/uL (0.0-0.7); EOSINOPHILS % (AUTO) 3.5 %; HCT - HEMATOCRIT 38.7 % (42.0-52.0); HGB - HEMOGLOBIN 12.6 g/dL (14.0-18.0); LYMPHOCYTES # (AUTO) 0.8 10^3/uL (1.5-3.5); LYMPHOCYTES % (AUTO) 15.1 %; MEAN CORPUSCULAR HEMOGLOBIN 32.6 pg (27.0-31.0); MEAN CORPUSCULAR HGB CONC 32.6 g/dL (32.0-36.0); MEAN PLATELET VOLUME 10.5 fL (7.4-11.4); MONOCYTES # (AUTO) 0.5 10^3/uL (0.0-1.0); MONOCYTES % (AUTO) 9.6 %; NEUTROPHILS # (AUTO) 3.9 10^3/uL (1.5-6.6); NEUTROPHILS % (AUTO) 71.1 %; PLT - PLATELET COUNT 145 10^3/uL (130-450); RED BLOOD COUNT 3.87 10^6/uL (4.70-6.10); RED CELL DISTRIBUTION WIDTH 13.1 % (12.0-15.0); WHITE BLOOD COUNT 5.5 x10^3/uL (4.8-10.8)
--- NOTE | 2021-08-21 13:19 | CT Report ---
PROCEDURE: CT angiogram neck with contrast INDICATIONS: L sided facial droop, L neck pain CONTRAST: IV CONTRAST: Optiray 320 ml: 80 PO CONTRAST: *NO PO CONTRAST TECHNIQUE: After the administration of intravenous contrast, 1.5 mm axial sections acquired from the aortic arch to the [place] of Son. For radiation dose reduction, the following was used: automat ed exposure control, adjustment of mA and/or kV according to patient size. COMPARISON: None. FINDINGS: Image quality: Excellent. Carotid system: The great vessels demonstrate a conventional anatomy as they arise from the aortic a [facility]. Atherosclerotic vascular calcification noted involving the arch and origins of the great vessel s without significant stenosis. The origins of the common carotid arteries appear patent. The common carotid arteries demonstrate normal calibers and courses. Atherosclerotic calcification of the origi ns of both internal carotid arteries results in 30% stenosis in the proximal right ICA and no stenosi s in the left ICA utilizing NASCET criteria. Posterior circulation: The origins of the vertebral arteries appear patent. The more superior porti ons of the vertebral arteries demonstrate normal course and caliber. They join to form a normal appe aring basilar artery. Right vertebral artery dominance. Left vertebral artery arises directly from t he aortic arch, an anatomic variant. Soft tissues: Visualized neck soft tissues demonstrate no suspicious abnormalities. The thyroid is normal in size and there are no incidental findings. Emphysematous changes present in both lung apice s with septal thickening. Bilateral maxillary sinus mucosal thickening noted. Bones: No suspicious bony lesions. Visualized cervical spine appears normally aligned. Multilevel degenerative disc disease and arthropathy noted in the cervical spine IMPRESSION: Atherosclerotic calcification resulting in 30% stenosis proximal right ICA utilizing NASCET criteria. Mild biapical pulmonary emphysema and septal thickening which may reflect pulmonary edema Note: The estimate of stenosis included in the report of the imaging study was calculated using the N ASCET method Note: Critical results were discussed with Dr. Berrios at 12:10 PM [place] time 08/21/2021 Reviewed by: Owen Pierce MD on 08/21/2021 12:18 PM [facility] Approved by: Owen Pierce MD on 08/21/2021 12:18 PM [facility]DT Station ID: [id number]
[2021-08-21 13:23] LABS: INR 1.1 (0.8-1.2); PT - PROTHROMBIN TIME 12.6 secs (9.9-12.6)
[2021-08-21 13:34] LABS: ALBUMIN 3.5 g/dL (3.2-5.5); ALBUMIN/GLOBULIN RATIO 1.5 (1.0-2.2); CREATININE 1.3 mg/dL (0.6-1.2); POTASSIUM 4.5 mmol/L (3.5-5.0); TOTAL PROTEIN 5.9 g/dL (6.7-8.2)
[2021-08-21] MEDS ORDERED: SODIUM CHLORIDE FLUSH 0.9% 10 ML SYRINGE IVP PRN (14:50)
[2021-08-21] MEDS ORDERED: ACETAMINOPHEN 325 MG TABLET PO PRN (14:50)
[2021-08-21] MEDS ORDERED: ONDANSETRON 4 MG/2 ML VIAL IVP PRN (14:50)
--- NOTE | 2021-08-21 15:02 | HISTORY & PHYSICAL EXAMINATION ---
Chief Complaint - Chief Complaint Chief Complaint: TIA and syncope History of Present Illness - Admitted From Admitted From:: Medical floor - History Obtained From Records Reviewed: [facility] History obtained from: pt - History of Present Illness HPI Comment/Other: This is a 85-years old male with a past medical history significant for hypertension, ID with s/p of stentingX3, rheumatoid arthritis, Chronic hearing loss, Urinary frequency, Who present to ER complain of one episode of syncope and TIA with left-sided weakness. Patient report when he peels pears at home, he feel lightheaded, then he sat down and had syncope episode. he report when he wake up, EMS was already at his home. pt was found at that time to have significant hypotensive at SBP 70s and heart rate at 40. 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 After the patient was given intravenous IV flow by the EMS, Patient's symptoms was resolved. Patient's left facial droop and left-sided weakness was totally recovered. pt report his left weakness was last for very brief time. CT angio of the head and neck show unremarkable for acute intracranial findings. Routine laboratory tests that show troponin is negative for ID, However creatinine increases to 1.3 from his baseline 0.9. EKG is pending. In the ER, vinicius vance is afebrile, patient heart rate initially is 51, otherwise patient is hemodynamic stable. Medical team was called for concern of patient's TIA and syncope episode. However we could not provide MRI and echo study for pt in the weekend. ER provider discussed this condition with the patient and his family, patient is still willing for medical management in this hospital. Discussed care goal with the patient, patient clearly request to be DNR History - Past Medical History Cardiovascular: reports: Hypertension, ID, Other Respiratory: reports: None Endocrine/Autoimmune: reports: None GI: reports: Colon polyps : reports: Frequency HEENT: reports: Chronic hearing loss Psych: reports: None Musculoskeletal: reports: Rheumatoid arthritis, Other Derm: reports: None MRSA Hx?: No - Past Surgical History Ortho: reports: Other Cardiovascular: reports: Coronary stent HEENT: reports: Tonsil/Adenoidectomy - Family & Social History Family History: Mother: , Father: Family History Comment/Other: Patient report his father at age 60 from ruptured of appendix. His mother at age 80 from ID Social History Notes: Patient reported he quit smoking at 1994, he denies alcohol issue or drug issue - POLST Patient has POLST: No Meds/Allgy - Home Medications Home Medications: Ambulatory Orders Medication Instructions Recorded Confirmed Ascorbic Acid [Vitamin C] 1 tab PO DAILY 02/21/15 08/21/21 Aspirin [Aspir 81] 1 tab PO DAILY 02/21/15 06/24/19 Losartan [Cozaar] 100 mg PO DAILY 02/21/15 08/21/21 Metoprolol Tartrate [Lopressor] 25 tab PO DAILY 02/21/15 08/21/21 Multivitamin [Multivitamins] 1 tab PO DAILY 02/21/15 06/24/19 Simvastatin [Zocor] 20 mg PO DAILY 02/21/15 06/24/19 metroNIDAZOLE 0.75% GEL [Flagyl 1 applic TOP BID 02/21/15 08/21/21 Gel] Latanoprost 0.005% Ophth Drops 1 drops OPTH QPM 08/07/15 08/21/21 [Xalatan Ophth Drops] Calcium Carbonate/Vitamin D3 500 mg PO DAILY 07/23/19 07/23/19 [Calcium 250-Vit D3 125 Tablet] Cholecalciferol (Vitamin D3) 1,000 mg PO DAILY 07/23/19 07/23/19 [Vitamin D3] Minocycline HCl 100 mg PO DAILY 07/23/19 08/21/21 Nitroglycerin 0.4 mg SL PRN PRN 07/23/19 08/21/21 [place]-3/Dha/Epa/Fish Oil [Fish Oil 100 mg PO DAILY 07/23/19 07/23/19 1,000 mg Softgel] Atorvastatin Calcium [Lipitor] 1 tab PO DAILY 08/21/21 08/21/21 Isosorbide Mononitrate ER [Imdur] 1 tab PO DAILY 08/21/21 08/21/21 amLODIPine [Norvasc] 2.5 mg PO DAILY 08/21/21 08/21/21 - Allergies Allergies/Adverse Reactions: Allergies Allergy/AdvReac Type Severity Reaction Status Date / Time morphine AdvReac Severe bradycardia Verified 08/21/21 12:53 Review of Systems - Constitutional Constitutional: denies: Fever, Chills - Eyes Eyes: denies: Pain - Ears, Nose & Throat Ears, Nose & Throat: denies: Ear pain - Cardiovascular Cariovascular: reports: Lightheadedness, Syncope. denies: Palpitations, Chest pain - Respiratory Respiratory: denies: Cough, SOB at rest - Gastrointestinal Gastrointestinal: denies: Abdominal pain, Diarrhea, Nausea, Vomiting - Genitourinary Genitourinary: reports: Frequency. denies: Dysuria - Musculoskeletal Musculoskeletal: denies: Muscle pain - Neurological Neurological: reports: Focal weakness, Dizziness. denies: General weakness, Numbness, Seizures, Incoordination, Slurred speech - Psychiatric Psychiatric: denies: Depression - Hematologic/Lymphatic Hematologic/Lymphatic: denies: Anemia Exam - Vital Signs Vital Signs: Vital Signs x48h Temp Pulse Resp BP Pulse Ox 08/21/21 14:03 60 21 132/64 H 97 08/21/21 13:30 54 L 17 112/61 100 08/21/21 13:23 54 L 13 114/68 96 08/21/21 12:33 36.4 C L 51 L 10 L 114/59 L 94 - Physical Exam General Appearance: positive: No acute distress, Alert. negative: Lethargic Eyes Bilateral: positive: Normal inspection, PERRL, No lid inflammation ENT: positive: ENT inspection nml, No signs of dehydration. negative: Purulent nasal drainage Neck: positive: Nml inspection, Trachea midline. negative: Thyromegaly, Tracheal deviation Respiratory: positive: Chest non-tender, No respiratory distress. negative: Wheezes Cardiovascular: positive: Regular rate & rhythm, No murmur. negative: Tachycardia, Bradycardia, Systolic murmur, Diastolic murmur Peripheral Pulses: positive: 2+ Abdomen: positive: Non-tender, Nml bowel sounds, No distention. negative: Tenderness Back: positive: Nml inspection Skin: positive: Color nml, Warm, Dry. negative: Cyanosis Extremities: positive: Non-tender, Full ROM, Nml appearance. negative: Calf tenderness Neurologic/Psychiatric: positive: Oriented x3, Motor nml, Sensation nml. negative: Weakness, Sensory loss, Facial droop, Slurred/abnml speech, Depressed mood/affect Conclusion/Plan - Problem List (1) Syncope and collapse Conclusion/Plan: Patient had an episode of syncope in the home. Patient was found hypotensive at her systolic blood pressure 70s, With bradycardia heart rate at 40. Troponin is 7.5, negative for acute ID. Patient also show creatinine 1.3, significantly increases from 0.9 as his baseline. Patient's EKG is pending. Unfortunately we do not have echo until Monday. Patient and patient family know this condition. Patient syncope could be combination of hypotensive and poor perfusion from dehydration and bradycardia. We will do echo study until Monday, we discussed the case with the supportive employment case manager as well. We will finish EKG study, we will put the patient on monitor and storage bin tender, We will give patient intravenous IV fluids, we will continue laboratory mechanical technician, We will do orthostatic hypotension study. (2) TIA (transient ischemic attack) Conclusion/Plan: Patient also present TIA with left-sided facial droop, left-sided weakness, But the patient's symptoms were already resolved when patient present to ER. This could be caused by patient poor perfusion to brain from Patient's hypovolemia from significantly dehydration and bradycardia. CTA of head and neck were unremarkable for acute intracranial finding. We do not have MRI on weekend, we will finish MRI on Monday. We will continue to monitor IV fluids. Will resume home Lipitor, add a baby aspirin. (3) MARISSA (acute kidney injury) Conclusion/Plan: Patient's creatinine increases to the 1.3 from baseline 0.9. Patient clinically present significantly dehydration. We will continue laboratory mechanical technician, continue intravenous IV fluids (4) HTN (hypertension) Conclusion/Plan: Patient present hypotensive before the admission by EMS assessment. We will hold the patient blood pressure medication amlodipine, losartan, Resume Imdur Per patient has history of chest pain and ID. Continue laboratory mechanical technician, and adjust blood pressure medicine as needed (5) Bradycardia Conclusion/Plan: Previous EMS reported patient had heart rate at 40 previous to the admission in the ER. Patient take Metoprolol in the home, we will hold metoprolol, We will continue monitor and storage bin tender, we will finish EKG study. - Lab Results Fish Bones: 08/21/21 13:08 08/21/21 13:08 Core Measures - Anticipated LOS I expect patient to be DC'd or transferred within 96 hours.: Yes - DVT/VTE - Prophylaxis VTE/DVT Device ordered at admit?: Yes VTE/DVT Prophylaxis med ordered at admit?: Yes
[2021-08-21 15:23] LABS: B. PARAPERTUSSIS- RESP PCR PAN NOT DETECTED; B. PERTUSSIS- RESP PCR PANEL NOT DETECTED; C. PNEUMONIAE- RESP PCR PANEL NOT DETECTED; CORONAVIRUS 229E-RESP PCR NOT DETECTED; CORONAVIRUS HKU1-RESP PCR NOT DETECTED; CORONAVIRUS NL63-RESP PCR NOT DETECTED; CORONAVIRUS OC43-RESP PCR NOT DETECTED; HUMAN METAPNEUMOVIRUS NOT DETECTED; INFLUENZA A- RESP PCR PANEL NOT DETECTED; INFLUENZA B - RESP PCR PANEL NOT DETECTED; M. PNEUMONIAE- RESP PCR PANEL NOT DETECTED; PARAINFLUENZA VIRUS 1 NOT DETECTED; PARAINFLUENZA VIRUS 2 NOT DETECTED; PARAINFLUENZA VIRUS 3 NOT DETECTED; PARAINFLUENZA VIRUS 4 NOT DETECTED; RHINOVIRUS/ENTEROVIRUS NOT DETECTED; RSV- RESP PCR PANEL NOT DETECTED; SARS-CoV-2 -RESP PCR PANEL NOT DETECTED
[2021-08-21 15:45] LABS: BILIRUBIN,URINE NEGATIVE (NEGATIVE); GLUCOSE, URINE (UA) NEGATIVE (NEGATIVE); KETONES,URINE (UA) NEGATIVE (NEGATIVE); LEUKOCYTE ESTERASE, URINE NEGATIVE (NEGATIVE); NITRITE,URINE NEGATIVE (NEGATIVE); OCCULT BLOOD,URINE NEGATIVE (NEGATIVE); PROTEIN,URINE NEGATIVE (NEGATIVE); UROBILINOGEN,URINE 0.2 (NORMAL) E.U./dL (NORMAL)
[2021-08-21 15:46] LABS: CLARITY,URINE CLEAR (CLEAR)
[2021-08-21] MEDS ORDERED: NITROGLYCERIN SL 0.4 MG TABLET SL PRN (16:13)
[2021-08-21] MEDS: ASPIRIN CHEW 81 MG TABLET PO SCH (18:06)
[2021-08-21] MEDS: LACTATED RINGERS 1,000 ML IV SCH (18:06)
[2021-08-21] MEDS: SODIUM CHLORIDE FLUSH 0.9% 10 ML SYRINGE IVP SCH ×2 (18:06→23:09)
[2021-08-21] MEDS: ATORVASTATIN 40 MG TABLET PO SCH (21:11)
[2021-08-22] MEDS: LACTATED RINGERS 1,000 ML IV SCH (04:04)
[2021-08-22 06:00] LABS: BASOPHILS % (AUTO) 0.5 %; EOSINOPHILS # (AUTO) 0.3 10^3/uL (0.0-0.7); EOSINOPHILS % (AUTO) 4.9 %; HCT - HEMATOCRIT 38.4 % (42.0-52.0); HGB - HEMOGLOBIN 12.4 g/dL (14.0-18.0); LYMPHOCYTES # (AUTO) 1.1 10^3/uL (1.5-3.5); LYMPHOCYTES % (AUTO) 19.9 %; MEAN CORPUSCULAR HEMOGLOBIN 31.8 pg (27.0-31.0); MEAN CORPUSCULAR HGB CONC 32.3 g/dL (32.0-36.0); MEAN CORPUSCULAR VOLUME 98.5 fL (80.0-94.0); MEAN PLATELET VOLUME 10.8 fL (7.4-11.4); MONOCYTES # (AUTO) 0.6 10^3/uL (0.0-1.0); MONOCYTES % (AUTO) 11.2 %; NEUTROPHILS # (AUTO) 3.6 10^3/uL (1.5-6.6); NEUTROPHILS % (AUTO) 63.3 %; PLT - PLATELET COUNT 143 10^3/uL (130-450); RED CELL DISTRIBUTION WIDTH 13.1 % (12.0-15.0); WHITE BLOOD COUNT 5.7 x10^3/uL (4.8-10.8)
[2021-08-22 06:07] LABS: CALCIUM 8.6 mg/dL (8.5-10.3); POTASSIUM 3.9 mmol/L (3.5-5.0)
--- NOTE | 2021-08-22 08:53 | PHARMACY PROGRESS NOTE ---
- Best Possible Medication History Admit Date and Time: 08/21/21 1450 Processed by: Nursing Medication History completed: Yes Patient Interview: Completed Secondary Source(s): Pharmacy records, Insurance records As the person ultimately responsible for medication therapy, providers are able to order a medication from an existing home medication list in [facility] via the "Reconcile Routine" prior to Confirmation of that medication by operator command support systems. Such practice is discouraged except when the physician, in their clinical judgment, deems that a medical need exists for a medication without regard to previous use.
[2021-08-22] MEDS: ASPIRIN CHEW 81 MG TABLET PO SCH (09:03)
[2021-08-22] MEDS: ENOXAPARIN 40 MG/0.4 ML SYRINGE SUBQ SCH (09:05)
[2021-08-22] MEDS: ISOSORBIDE MONONITRATE ER 30 MG TABLET PO SCH (09:05)
[2021-08-22] MEDS: SODIUM CHLORIDE FLUSH 0.9% 10 ML SYRINGE IVP SCH ×2 (09:07→20:03)
--- NOTE | 2021-08-22 13:45 | PROVIDER PROGRESS NOTE ---
Assessment/Plan - Problem List (1) Syncope and collapse Assessment/Plan: 08/22 unfortunately we do not have ECHO study on the weekend, as administration agreed to admit pt for ECHO study, plan to have ECHO on tomorrow. pt has a significantly syncope episode at this admission. we continue tele and vital mon itor pt Patient had an episode of syncope in the home. Patient was found hypotensive at her systolic blood pressure 70s, With bradycardia heart rate at 40. Troponin is 7.5, negative for acute MN. Patient also show creatinine 1.3, significantly increases from 0.9 as his baseline. Patient's EKG is pending. Unfortunately we do not have echo until Monday. Patient and patient family know this condition. Patient syncope could be combination of hypotensive and poor perfusion from dehydration and bradycardia. We will do echo study until Monday, we discussed the case with the casework supervisor as well. We will finish EKG study, we will put the patient on threat monitoring analyst, We will give patient intravenous IV fluids, we will continue dental laboratory technology teacher, We will do orthostatic hypotension study. (2) TIA (transient ischemic attack) Conclusion/Plan: 08/22 pt present left-sided facial droop, left-sided weakness TIA prior to ER per EMS report. unfortunately we do not have MRI study on the weekend, as administration agreed to admit pt for MRI study, plan to have MRI of brain on tomorrow. continue neuro check, vital monitor Patient also present TIA with left-sided facial droop, left-sided weakness, But the patient's symptoms were already resolved when patient present to ER. This could be caused by patient poor perfusion to brain from Patient's hypovolemia f rom significantly dehydration and bradycardia. CTA of head and neck were unremarkable for acute intracranial finding. We do not have MRI on weekend, we will finish MRI on Monday. We will continue to monitor IV fluids. Will resume home Lipitor, add a baby aspirin. (3) MARISSA (acute kidney injury) Conclusion/Plan: 08/22 significantly improved. creatinine is 1.0. continue gently IVF, and lab monitor, hold nephrolotixic agents Patient's creatinine increases to the 1.3 from baseline 0.9. Patient clinically present significantly dehydration. We will continue dental laboratory technology teacher, continue intravenous IV fluids (4) HTN (hypertension) Conclusion/Plan: Patient present hypotensive before the admission by EMS assessment. We will hold the patient blood pressure medication amlodipine, losartan, Resume Imdur Per patient has history of chest pain and MN. Continue dental laboratory technology teacher, and adjust blood pressure medicine as needed (5) Bradycardia Conclusion/Plan: 08/22 resolved. HR is 75 and stable. pt was not given metoprolol at hospital, likely we will hold Metoprolol at his home meds Previous EMS reported patient had heart rate at 40 previous to the admission in the ER. Patient take Metoprolol in the home, we will hold metoprolol, We will continue threat monitoring analyst, we will finish EKG study. - Current Meds Current Meds: Current Medications Generic Name Dose Route Start Last Admin Trade Name Freq PRN Reason Stop Dose Admin Aspirin 81 mg 08/21/21 17:00 08/22/21 09:03 Aspirin Chew 81 Mg Tablet PO 81 mg DAILY PAOLA Administration Atorvastatin Calcium 80 mg 08/21/21 21:00 08/21/21 21:11 Atorvastatin 40 Mg Tablet PO 80 mg QPM PAOLA Administration Enoxaparin Sodium 40 mg 08/22/21 09:00 08/22/21 09:05 Enoxaparin 40 Mg/0.4 Ml Syringe SUBQ 40 mg DAILY PAOLA Administration Lactated Ringer's 1,000 mls @ 83.3 mls/hr 08/21/21 15:00 08/22/21 04:04 Lr IV 08/22/21 15:00 83.3 mls/hr .Q12H1M PAOLA Administration Isosorbide Mononitrate 30 mg 08/22/21 09:00 08/22/21 09:05 Isosorbide Mononitrate Er 30 Mg Tablet PO 30 mg DAILY PAOLA Administration Sodium Chloride 10 ml 08/21/21 17:00 08/22/21 09:07 Sodium Chloride Flush 0.9% 10 Ml Syringe IVP Not Given 0100,0900,1700 PAOLA - Lab Result Fish Bone Diagrams: 08/22/21 05:45 08/22/21 05:45 - Additional Planning My Orders: My Active Orders 08/21/21 14:50 Activity Orders [RC] Q2HR IO [RC] IOSHIFT Initiate Bowel Care Protocol [RC] .protocol Initiate Flu Vaccine Screening [RC] ONCE Initiate Line Care Protocol [RC] QSHIFT Initiate Personal Care Protoco [RC] .protocol Initiate Pneumonia Vaccine Scr [RC] ONCE Telemetry- [RC] Q4HR Vital Signs [RC] Q4HR Acetaminophen [Tylenol] 650 mg PO Q4HR PRN Ondansetron Inj [Zofran Inj] 4 mg IVP Q6HR PRN Sodium Chloride Flush 0.9% [Normal Saline Flush 0.9%] 10 ml IVP PRN PRN Code Status [OTHERS] Routine Condition of Patient [OTHERS] Routine DVT Prophylaxis [OTHERS] Routine 08/21/21 14:51 IV Insert [RC] .ONCE 08/21/21 14:52 SCDs [RC] QSHIFT 08/21/21 15:00 Lactated Ringers [Lr] 1,000 ml IV 83.3 mls/hr 08/21/21 16:13 Nitroglycerin [Nitrostat] 0.4 mg SL PRN PRN 08/21/21 Dinner Regular Diet [DIET] 08/21/21 17:00 Aspirin Chewable [[facility] Aspirin] 81 mg PO DAILY Sodium Chloride Flush 0.9% [Normal Saline Flush 0.9%] 10 ml IVP 0100,0900,1700 08/21/21 18:43 Code Status [OTHERS] Routine 08/21/21 21:00 Atorvastatin [Lipitor] 80 mg PO QPM 08/22/21 09:00 Enoxaparin [Lovenox] 40 mg SUBQ DAILY Isosorbide Mononitrate ER [Imdur] 30 mg PO DAILY 08/23/21 05:00 BMP - BASIC METABOLIC PANEL [CHEM] DAILYLAB CBC - COMP BLD CT W/AUTO DIFF [HEME] DAILYLAB 08/23/21 08:00 BRAIN WO [MRI] Routine Echo Transthoracic Complete [ECHO] Routine 08/24/21 05:00 BMP - BASIC METABOLIC PANEL [CHEM] DAILYLAB CBC - COMP BLD CT W/AUTO DIFF [HEME] DAILYLAB 08/25/21 05:00 BMP - BASIC METABOLIC PANEL [CHEM] DAILYLAB CBC - COMP BLD CT W/AUTO DIFF [HEME] DAILYLAB 08/26/21 05:00 BMP - BASIC METABOLIC PANEL [CHEM] DAILYLAB CBC - COMP BLD CT W/AUTO DIFF [HEME] DAILYLAB Subjective - Subjective Patient Reports: Feeling Better Objective Vital Signs: Vital Signs - 24 hr 08/21/21 08/21/21 08/21/21 14:03 15:19 15:27 Temperature Heart Rate 60 57 L 58 L Heart Rate [ Brachial] Respiratory 21 11 L 14 Rate Blood Pressure 132/64 H 120/108 H 120/108 H Blood Pressure [Left Brachial artery] O2 Saturation 97 97 97 08/21/21 08/21/21 08/21/21 15:36 16:27 16:50 Temperature Heart Rate 60 60 57 L Heart Rate [ Brachial] Respiratory 14 16 12 Rate Blood Pressure 123/62 133/77 H 145/96 H Blood Pressure [Left Brachial artery] O2 Saturation 99 97 99 08/21/21 08/21/21 08/21/21 17:03 17:46 19:39 Temperature 36.4 C L 36.8 C Heart Rate 64 Heart Rate [ 72 73 Brachial] Respiratory 13 18 16 Rate Blood Pressure 140/72 H Blood Pressure 143/69 H 129/69 [Left Brachial artery] O2 Saturation 100 100 98 08/21/21 08/22/21 08/22/21 23:36 06:33 08:30 Temperature 36.9 C 36.8 C 36.9 C Heart Rate Heart Rate [ 74 67 73 Brachial] Respiratory 18 16 18 Rate Blood Pressure Blood Pressure 134/70 H 129/64 137/71 H [Left Brachial artery] O2 Saturation 96 95 94 08/22/21 11:16 Temperature 36.9 C Heart Rate Heart Rate [ 75 Brachial] Respiratory 16 Rate Blood Pressure Blood Pressure 133/63 H [Left Brachial artery] O2 Saturation 97 Oxygen O2 Source Room air I&O (Last 24 Hrs): Intake and Output Totals x24h 08/20/21 08/21/21 08/22/21 23:59 23:59 23:59 Intake Total 480 2530.223 Output Total 400 1425 Balance 80 1105.223 General: Alert, Oriented x3, Cooperative, No acute distress HEENT: Atraumatic Neck: Supple Lymphatic: no adenopathy Neuro: Alert, Non Focal, Oriented Times 3 Cardiovascular: Regular rate, Normal S1, Normal S2 Respiratory: Chest non-tender, No respiratory distress, Breath sounds nml Abdomen: Normal bowel sounds, Soft, No tenderness Extremities: Normal pulses - Results Results: Laboratory Results WBC 5.7 x10^3/uL (4.8-10.8) 08/22/21 05:45 RBC 3.90 10^6/uL (4.70-6.10) L 08/22/21 05:45 Hgb 12.4 g/dL (14.0-18.0) L 08/22/21 05:45 Hct 38.4 % (42.0-52.0) L 08/22/21 05:45 MCV 98.5 fL (80.0-94.0) H 08/22/21 05:45 MCH 31.8 pg (27.0-31.0) H 08/22/21 05:45 MCHC 32.3 g/dL (32.0-36.0) 08/22/21 05:45 RDW 13.1 % (12.0-15.0) 08/22/21 05:45 Plt Count 143 10^3/uL (130-450) 08/22/21 05:45 MPV 10.8 fL (7.4-11.4) 08/22/21 05:45 Neut # (Auto) 3.6 10^3/uL (1.5-6.6) 08/22/21 05:45 Lymph # (Auto) 1.1 10^3/uL (1.5-3.5) L 08/22/21 05:45 [place] # (Auto) 0.6 10^3/uL (0.0-1.0) 08/22/21 05:45 Eos # (Auto) 0.3 10^3/uL (0.0-0.7) 08/22/21 05:45 Baso # (Auto) 0.0 10^3/uL (0.0-0.1) 08/22/21 05:45 Absolute Nucleated RBC 0.00 x10^3/uL 08/22/21 05:45 Nucleated RBC % 0.0 /100WBC 08/22/21 05:45 PT 12.6 secs (9.9-12.6) 08/21/21 13:08 INR 1.1 (0.8-1.2) 08/21/21 13:08 Sodium 143 mmol/L (135-145) 08/22/21 05:45 Potassium 3.9 mmol/L (3.5-5.0) 08/22/21 05:45 Chloride 112 mmol/L (101-111) H 08/22/21 05:45 Carbon Dioxide 25 mmol/L (21-32) 08/22/21 05:45 Anion Gap 6.0 (6-13) 08/22/21 05:45 BUN 18 mg/dL (6-20) 08/22/21 05:45 Creatinine 1.0 mg/dL (0.6-1.2) 08/22/21 05:45 Estimated GFR (MDRD) 71 (>89) L 08/22/21 05:45 Glucose 102 mg/dL (70-100) H 08/22/21 05:45 Calcium 8.6 mg/dL (8.5-10.3) 08/22/21 05:45 Total Bilirubin 1.0 mg/dL (0.2-1.0) 08/21/21 13:08 AST 30 IU/L (10-42) 08/21/21 13:08 ALT 27 IU/L (10-60) 08/21/21 13:08 Alkaline Phosphatase 84 IU/L (42-121) 08/21/21 13:08 Troponin I High Sens 7.5 ng/L (2.3-19.7) 08/21/21 13:08 Total Protein 5.9 g/dL (6.7-8.2) L 08/21/21 13:08 Albumin 3.5 g/dL (3.2-5.5) 08/21/21 13:08 Globulin 2.4 g/dL (2.1-4.2) 08/21/21 13:08 Albumin/Globulin Ratio 1.5 (1.0-2.2) 08/21/21 13:08 Lipase 49 U/L (22-51) 08/21/21 13:08 TSH 10.88 uIU/mL (0.34-5.60) H 08/21/21 13:08 Free T4 0.82 ng/dL (0.58-1.64) 08/21/21 13:00 Urine Color YELLOW 08/21/21 15:28 Urine Clarity CLEAR (CLEAR) 08/21/21 15:28 Urine pH 5.0 PH (5.0-7.5) 08/21/21 15:28 Ur Specific [place] 1.010 (1.002-1.030) 08/21/21 15:28 Urine Protein NEGATIVE mg/dL (NEGATIVE) 08/21/21 15:28 Urine Glucose (UA) NEGATIVE mg/dL (NEGATIVE) 08/21/21 15:28 Urine Ketones NEGATIVE mg/dL (NEGATIVE) 08/21/21 15:28 Urine Occult Blood NEGATIVE (NEGATIVE) 08/21/21 15:28 Urine Nitrite NEGATIVE (NEGATIVE) 08/21/21 15:28 Urine Bilirubin NEGATIVE (NEGATIVE) 08/21/21 15:28 Urine Urobilinogen 0.2 (NORMAL) E.U./dL (NORMAL) 08/21/21 15:28 Ur Leukocyte Esterase NEGATIVE (NEGATIVE) 08/21/21 15:28 Ur Microscopic Review NOT INDICATED 08/21/21 15:28 Urine Culture Comments NOT INDICATED 08/21/21 15:28 Nasal Adenovirus (PCR) NOT DETECTED 08/21/21 13:08 Nasal B. parapertussis DNA (PCR) NOT DETECTED 08/21/21 13:08 Nasal Coronavir 229E PCR NOT DETECTED 08/21/21 13:08 Nasal Coronavir HKU1 PCR NOT DETECTED 08/21/21 13:08 Nasal Coronavir NL63 PCR NOT DETECTED 08/21/21 13:08 Nasal Coronavir OC43 PCR NOT DETECTED 08/21/21 13:08 Nasal Enterovir/Rhinovir PCR NOT DETECTED 08/21/21 13:08 Nasal Influenza B PCR NOT DETECTED 08/21/21 13:08 Nasal Influenza A PCR NOT DETECTED 08/21/21 13:08 Nasal Parainfluen 1 PCR NOT DETECTED 08/21/21 13:08 Nasal Parainfluen 2 PCR NOT DETECTED 08/21/21 13:08 Nasal Parainfluen 3 PCR NOT DETECTED 08/21/21 13:08 Nasal Parainfluen 4 PCR NOT DETECTED 08/21/21 13:08 Nasal RSV (PCR) NOT DETECTED 08/21/21 13:08 Nasal B.pertussis DNA PCR NOT DETECTED 08/21/21 13:08 Nasal C.pneumoniae (PCR) NOT DETECTED 08/21/21 13:08 Robert Human Metapneumo PCR NOT DETECTED 08/21/21 13:08 Nasal M.pneumoniae (PCR) NOT DETECTED 08/21/21 13:08 Nasal SARS-CoV-2 (PCR) NOT DETECTED 08/21/21 13:08 - Procedures Procedures: Procedures ENDOSC POLYPECTOMY OF LG INTEST (08/07/15) ABX Reporting Has patient been on IV antibiotics over the past 48 hours?: No Current Medications - Current Medications Current Medications: Active Medications Acetaminophen (Acetaminophen 325 Mg Tablet) 650 mg PO Q4HR PRN PRN Reason: Pain 1 to 4 Aspirin (Aspirin Chew 81 Mg Tablet) 81 mg PO DAILY [facility] Last Admin: 08/22/21 09:03 Dose: 81 mg Documented by: Atorvastatin Calcium (Atorvastatin 40 Mg Tablet) 80 mg PO QPM [facility] Last Admin: 08/21/21 21:11 Dose: 80 mg Documented by: Enoxaparin Sodium (Enoxaparin 40 Mg/0.4 Ml Syringe) 40 mg SUBQ DAILY [facility] Last Admin: 08/22/21 09:05 Dose: 40 mg Documented by: Lactated Ringer's (Lr) 1,000 mls @ 83.3 mls/hr IV .Q12H1M [facility] Stop: 08/22/21 15:00 Last Admin: 08/22/21 04:04 Dose: 83.3 mls/hr Documented by: Isosorbide Mononitrate (Isosorbide Mononitrate Er 30 Mg Tablet) 30 mg PO DAILY [facility] Last Admin: 08/22/21 09:05 Dose: 30 mg Documented by: Nitroglycerin (Nitroglycerin Sl 0.4 Mg Tablet) 0.4 mg SL PRN PRN PRN Reason: Chest Pain Ondansetron HCl (Ondansetron 4 Mg/2 Ml Vial) 4 mg IVP Q6HR PRN PRN Reason: Nausea / Vomiting Sodium Chloride (Sodium Chloride Flush 0.9% 10 Ml Syringe) 10 ml IVP PRN PRN PRN Reason: NEEDED PER PROVIDER ORDERS Sodium Chloride (Sodium Chloride Flush 0.9% 10 Ml Syringe) 10 ml IVP 0100,0900,1700 [facility] Last Admin: 08/22/21 09:07 Dose: Not Given Documented by: Ascorbic Acid [Vitamin C] 1 tab PO DAILY 02/21/15 Aspirin [Aspir 81] 81 mg PO DAILY 02/21/15 Losartan [Cozaar] 100 mg PO DAILY 02/21/15 metroNIDAZOLE 0.75% GEL [Flagyl Gel] 1 applic TOP BID 02/21/15 Latanoprost 0.005% Ophth Drops [Xalatan Ophth Drops] 1 drops OPTH QPM 08/07/15 Minocycline HCl 100 mg PO BID 07/23/19 Nitroglycerin 0.4 mg SL PRN PRN 07/23/19 Atorvastatin Calcium [Lipitor] 1 tab PO DAILY 08/21/21 Isosorbide Mononitrate ER [Imdur] 1 tab PO DAILY 08/21/21 amLODIPine [Norvasc] 2.5 mg PO DAILY 08/21/21 Metoprolol Succinate [Toprol Xl] 50 mg PO BID 08/22/21
[2021-08-22] MEDS: ATORVASTATIN 40 MG TABLET PO SCH (20:02)
[2021-08-23] MEDS: SODIUM CHLORIDE FLUSH 0.9% 10 ML SYRINGE IVP SCH ×2 (01:16→08:28)
[2021-08-23 07:03] LABS: BASOPHILS % (AUTO) 0.7 %; EOSINOPHILS # (AUTO) 0.3 10^3/uL (0.0-0.7); EOSINOPHILS % (AUTO) 5.8 %; HCT - HEMATOCRIT 37.8 % (42.0-52.0); HGB - HEMOGLOBIN 12.2 g/dL (14.0-18.0); LYMPHOCYTES # (AUTO) 1.2 10^3/uL (1.5-3.5); LYMPHOCYTES % (AUTO) 21.3 %; MEAN CORPUSCULAR HEMOGLOBIN 31.8 pg (27.0-31.0); MEAN CORPUSCULAR HGB CONC 32.3 g/dL (32.0-36.0); MEAN CORPUSCULAR VOLUME 98.4 fL (80.0-94.0); MEAN PLATELET VOLUME 10.7 fL (7.4-11.4); MONOCYTES # (AUTO) 0.5 10^3/uL (0.0-1.0); MONOCYTES % (AUTO) 9.2 %; NEUTROPHILS # (AUTO) 3.6 10^3/uL (1.5-6.6); NEUTROPHILS % (AUTO) 62.7 %; PLT - PLATELET COUNT 145 10^3/uL (130-450); RED BLOOD COUNT 3.84 10^6/uL (4.70-6.10); RED CELL DISTRIBUTION WIDTH 13.1 % (12.0-15.0); WHITE BLOOD COUNT 5.7 x10^3/uL (4.8-10.8)
[2021-08-23 07:14] LABS: CALCIUM 8.4 mg/dL (8.5-10.3); POTASSIUM 3.8 mmol/L (3.5-5.0)
[2021-08-23] MEDS: ASPIRIN CHEW 81 MG TABLET PO SCH (08:28)
[2021-08-23] MEDS: ENOXAPARIN 40 MG/0.4 ML SYRINGE SUBQ SCH (08:28)
[2021-08-23] MEDS: ISOSORBIDE MONONITRATE ER 30 MG TABLET PO SCH (08:28)
--- NOTE | 2021-08-23 10:25 | MRI Report ---
PROCEDURE: Brain W/O INDICATIONS: TIA TECHNIQUE: Noncontrast axial T1 spin echo, axial T2 fast spin echo, sagittal and axial FLAIR, coronal T2 fast sp in echo, axial gradient echo, axial diffusion and ADC through the brain. COMPARISON: CT angiogram of the head and neck dated 08/21/2021. FINDINGS: Image quality: Excellent. CSF Spaces: Basal cisterns are patent. No extra-axial fluid collections. Ventricles are normal in size and shape. Brain: No intracranial masses or hemorrhage. [place]/white matter interface is normal. Age-related vo lume loss and moderate small vessel ischemic change. This involves both the supratentorial structures in the temo. Brainstem appears normal. Diffusion-weighted images demonstrate no acute ischemic insu lt. No chronic ischemic insults. Normal intravascular flow voids are present. Skull and face: Calvarium has normal marrow signal. Orbits appear normal. Sinuses: Right maxillary sinus mucosal thickening. IMPRESSION: 1. Age-related volume loss and moderate small vessel ischemic change. 2. No evidence acute stroke, hemorrhage, or mass. Reviewed by: Napoleon Santoyo MD on 08/23/2021 10:24 AM PDT Approved by: Napoleon Santoyo MD on 08/23/2021 10:24 AM PDT Station ID: [id number]
--- NOTE | 2021-08-23 11:21 | Discharge Plan ---
Discharge Plan Problem Reviewed?: Yes Disposition: Home, Self Care Condition: Stable Prescriptions: Metoprolol Succinate [Toprol Xl] 50 mg PO DAILY #30 tab Diet: Regular Activity Restrictions: Activity as Tolerated Shower Restrictions: No (fall precaution) Instruction Topics: Dehydration, Syncope Causes, Syncope, TIA, Transient Ischemic Attack Dc Health Concerns: syncope and TIA Plan of Treatment: ECHO study for your heart show mild aortic stenosis and He had significantly hypotension and bradycardia, and dehydration at his admission which could likely contribute to your syncope episode. Your home blood pressure medications: Amlodipine, losartan are hold, Metoprolol dosage is reduced to half. you may keep hydration at home and You may followup with your PCP in one week and marine oil terminal superintendent as out-pt to manage for you. Your TIA symptoms were resolved prior to hospital ER. you continue keeping asymptomatic. Your image study of MRI of brain, CTA of head and neck reveals no evidence of acute stroke, hemorrhage or mass. Care Goals: Stabilization and improvement of your medical conditions Assessment: Discussed the care plan and imaging study results with you, answered your question, you understood Additional Instructions or Follow Up instructions: You may follow-up with your PCP in 1 week, should your symptoms return or worse you may present to ER or call 911 for help No Smoking: If you smoke, Please STOP! Call for help.
--- NOTE | 2021-08-23 11:31 | DISCHARGE SUMMARY ---
Discharge Summary Admit Date: 08/21/21 Discharge Date: 08/23/21 Discharging Provider: Skyler Cavanaugh Primary Care Provider: Chika Teresa Condition at Discharge: Stable Discharge Disposition: 01 Home, Self Care Discharge Facility Name: home - DIAGNOSES Discharge Diagnoses with Status of Each Condition: (1) Syncope and collapse stable. pt had SBP at 76 and bradycardia 40s at the time EMS assessed pt, and pt also present significant dehydration at the admission. ECHO study show pt had preserved EF but with mild aortic stenosis. EKG show NS and troponin is negative for FL. we hold pt's Amlodipine, losartan and metoprolol at hospital, pt's BP is fine. his HR is slightly elevated. pt's syncope was likely caused by over medicated BP meds and dehydration. we hold pt's home Amlodipine, losartan, reduced pt's metoprolol dosage and followup with his PCP in one week to assess again. advise pt keep hydration at home (2) TIA (transient ischemic attack) total resolved, even before pt present to ER. PT evaluated pt and recommended pt can be safely d/c to home. image study show pt has no evidence acute stroke, Hemorrhage or mass. (3) MARISSA (acute kidney injury) Resolved (4)hypotension Resolved. we hold pt's Amlodipine, losartan and metoprolol at hospital, pt's BP is fine. his HR is slightly elevated. reduced pt's metoprolol dosage to home. pt may followup with his PCP in one week to assess again (5) Bradycardia resolved. reduced pt's home metoprolol dosage to half, and followup with his PCP in one week to re-assess. - HPI History of Present Illness: This is a 85-years old male with a past medical history significant for hypertension, FL with s/p of stentingX3, rheumatoid arthritis, Chronic hearing loss, Urinary frequency, Who present to ER complain of one episode of syncope and TIA with left-sided weakness. Patient report when he peels pears at home, he feel lightheaded, then he sat down and had syncope episode. he report when he wake up, EMS was already at his home. pt was found at that time to have significant hypotensive at SBP 70s and heart rate at 40. Pt also was found to have Left-sided facial droop, left upper extremity weakness and loss of extension worker strengths. After the patient was given intravenous IV flow by the EMS, Patient's symptoms was resolved. Patient's left facial droop and left-sided weakness was totally recovered. pt report his left weakness was last for very brief time. CT angio of the head and neck show unremarkable for acute intracranial findings. Routine laboratory tests that show troponin is negative for FL, However creatinine increases to 1.3 from his baseline 0.9. EKG is pending. In the ER, patient is afebrile, patient heart rate initially is 51, otherwise patient is hemodynamic stable. Medical team was called for concern of patient's TIA and syncope episode. However we could not provide MRI and echo study for pt in the weekend. ER provider discussed this condition with the patient and his family, patient is still willing for medical management in this hospital. Discussed care goal with the patient, patient clearly request to be DNR - ALLERGIES Allergies/Adverse Reactions: Allergies Allergy/AdvReac Type Severity Reaction Status Date / Time morphine AdvReac Severe bradycardia Verified 08/21/21 12:53 - MEDICATIONS Home Medications: Ambulatory Orders Medication Instructions Recorded Confirmed Ascorbic Acid [Vitamin C] 1 tab PO DAILY 02/21/15 08/21/21 Aspirin [Aspir 81] 81 mg PO DAILY 02/21/15 08/22/21 metroNIDAZOLE 0.75% GEL [Flagyl 1 applic TOP BID 02/21/15 08/21/21 Gel] Latanoprost 0.005% Ophth Drops 1 drops OPTH QPM 08/07/15 08/21/21 [Xalatan Ophth Drops] Minocycline HCl 100 mg PO BID 07/23/19 08/22/21 Nitroglycerin 0.4 mg SL PRN PRN 07/23/19 08/21/21 Atorvastatin Calcium [Lipitor] 1 tab PO DAILY 08/21/21 08/21/21 Isosorbide Mononitrate ER [Imdur] 1 tab PO DAILY 08/21/21 08/21/21 Metoprolol Succinate [Toprol Xl] 50 mg PO DAILY #30 tab 08/23/21 - PHYSICAL EXAM AT DISCHARGE General Appearance: positive: No acute distress, Alert. negative: Lethargic Eyes Bilateral: positive: Normal inspection, PERRL, No lid inflammation ENT: positive: ENT inspection nml, No signs of dehydration. negative: Purulent nasal drainage Neck: positive: Nml inspection, Trachea midline. negative: Thyromegaly, Tracheal deviation Respiratory: positive: Chest non-tender, No respiratory distress, Breath sounds nml. negative: Wheezes, Rales Cardiovascular: positive: Regular rate & rhythm, Systolic murmur. negative: Tachycardia, Bradycardia Peripheral Pulses: positive: 2+ Abdomen: positive: Non-tender, Nml bowel sounds, No distention. negative: Tenderness Back: positive: Nml inspection Skin: positive: Color nml, Warm, Dry. negative: Cyanosis Extremities: positive: Non-tender, Full ROM, Nml appearance. negative: Calf tenderness Neurologic/Psychiatric: positive: Oriented x3, Motor nml, Sensation nml, Mood/affect nml. negative: Weakness, Sensory loss, Facial droop, Slurred/abnml speech, Depressed mood/affect - LABS Result Diagrams: 08/23/21 06:39 08/23/21 06:39 - FOLLOW UP Follow Up: ECHO study for your heart show mild aortic stenosis and He had significantly hypotension and bradycardia, and dehydration at his admission which could likely contribute to your syncope episode. Your home blood pressure medications: Amlodipine, losartan are hold, Metoprolol dosage is reduced to half. you may keep hydration at home and You may followup with your PCP in one week and transfer and line up worker as out-pt to manage for you. Your TIA symptoms were resolved prior to hospital ER. you continue keeping asy mptomatic. Your image study of MRI of brain, CTA of head and neck reveals no evidence of acute stroke, hemorrhage or mass. You may follow-up with your PCP in 1 week, followup transfer and line up worker as out-pt. should your symptoms return or worse you may present to ER or call 911 for help - TIME SPENT Time Spent in Discharge (Minutes): 30
[2021-08-23] MEDS ORDERED: METOPROLOL TARTRATE 50 MG TABLET PO SCH (13:09)
[2021-08-23 13:33] VITALS: BP 142/71
== END 2021-08-23 13:40 | disposition home or self-care (01) | DRG 312 ==
LOC: EDUNIT# → ED 12:34 → MS2 14:50 → OBSVTOIN 08-22 11:05
PROVIDERS: ADMIT Nurse Practitioner Gerontology; ATTEND Nurse Practitioner Gerontology
DX: R55 Syncope and collapse (principal); G45.9 Transient cerebral ischemic attack, unspecified; N17.9 Acute kidney failure, unspecified; T46.1X5A Adverse effect of calcium-channel blockers, initial encounter; T46.5X5A Adverse effect of other antihypertensive drugs, initial encounter; T44.7X5A Adverse effect of beta-adrenoreceptor antagonists, initial encounter; Y92.009 Unspecified place in unspecified non-institutional (private) residence as the place of occurrence of the external cause; E86.0 Dehydration; R00.1 Bradycardia, unspecified; I95.9 Hypotension, unspecified; I35.0 Nonrheumatic aortic (valve) stenosis; I10 Essential (primary) hypertension; I25.2 Old myocardial infarction; E86.1 Hypovolemia; Z20.822 Contact with and (suspected) exposure to COVID-19; Z95.5 Presence of coronary angioplasty implant and graft; M06.9 Rheumatoid arthritis, unspecified; R35.0 Frequency of micturition; Z66 Do not resuscitate; Z87.891 Personal history of nicotine dependence
CPT/HCPCS: 36415; 70496; 70498; 70551; 80048; 80053; 81003; 83690; 84439; 84443; 84484; 85025; 85610; 87631; 93005; 93306; 96372; 97116; 97161; 99285; A9270; G0378; J1650; J7120; Q9967; 0202U; 81001; 87086

== ENCOUNTER 2021-08-25 08:00 | Outpatient (CLI) | payer MEDICARE, OTHER ==
[2021-08-25 18:34] LABS: BILIRUBIN,URINE NEGATIVE (NEGATIVE); GLUCOSE, URINE (UA) NEGATIVE (NEGATIVE); KETONES,URINE (UA) NEGATIVE (NEGATIVE); LEUKOCYTE ESTERASE, URINE NEGATIVE (NEGATIVE); NITRITE,URINE NEGATIVE (NEGATIVE); OCCULT BLOOD,URINE NEGATIVE (NEGATIVE); PH,URINE 5.5 PH (5.0-7.5); PROTEIN,URINE NEGATIVE (NEGATIVE); UROBILINOGEN,URINE 0.2 (NORMAL) E.U./dL (NORMAL)
[2021-08-25 18:37] LABS: BACTERIA,URINE Many /HPF (None Seen); CLARITY,URINE CLOUDY (CLEAR); RBC,URINE 0-5 /HPF (0-5); SQUAMOUS EPITHELIAL CELL,UR RARE Squamous (<= Few); WBC,URINE 0-3 /HPF (0-3)
== END 2021-08-25 23:59 | disposition home or self-care (01) ==
LOC: LAB.WCP 08:00
PROVIDERS: ATTEND Family Medicine
DX: R30.0 Dysuria (principal)
CPT/HCPCS: 81001; 87086

== ENCOUNTER 2021-09-03 16:29 | Outpatient (CLI) | payer MEDICARE, OTHER ==
--- NOTE | 2021-09-04 10:34 | Ultrasound Report ---
PROCEDURE: Bladder INDICATIONS: BPH TECHNIQUE: Focused sonographic evaluation of the bladder/prostate was performed with grayscale and co yvrose Doppler imaging. COMPARISON: None. FINDINGS: The bladder is moderately distended with prevoid bladder volume of 70.5 cc. There is diffuse circumfe rential bladder wall thickening. Postvoid bladder volume measures 41.1 cc. The prostate is enlarged a nd multinodular in appearance including the 2.1 cm hypoechoic mass along the anterior superior margin s. The prostate measures 5.3 x 5.6 x 4.6 cm. There are dystrophic calcifications. There is mass effec t on the adjacent bladder. IMPRESSION: Diffuse circumferential thickening of the bladder with significant post void volume remaining most co nsistent with bladder outlet obstruction given prostatomegaly. The prostate is enlarged and nodular i n appearance including a 2.1 cm nodularity projecting along the anterior margins. Recommend urology r eferral if not already performed. Reviewed by: Nolberto Whittington DO on 09/04/2021 9:33 AM [facility] Approved by: Nolberto Whittington DO on 09/04/2021 9:33 AM S[facility] Station ID: [id number]
== END 2021-09-03 16:30 | disposition home or self-care (01) ==
LOC: DI 16:29
PROVIDERS: ATTEND Family Medicine
DX: N40.0 Benign prostatic hyperplasia without lower urinary tract symptoms (principal); N40.2 Nodular prostate without lower urinary tract symptoms; R93.41 Abnormal radiologic findings on diagnostic imaging of renal pelvis, ureter, or bladder

== ENCOUNTER 2021-09-25 14:01 | Outpatient (CLI) | payer MEDICARE, OTHER | END 2021-09-25 14:02 | disposition critical access hospital (66) | LOC: EMS 14:01 | DX: R42 Dizziness and giddiness (principal); R07.9 Chest pain, unspecified; R00.0 Tachycardia, unspecified | CPT/HCPCS: A0425; A0427 ==

== ENCOUNTER 2021-09-25 14:31 | Emergency (ER) | payer MEDICARE, OTHER ==
[2021-09-25] MEDS ORDERED: SODIUM CHLORIDE 0.9% 1,000 ML IV STA (14:49)
--- NOTE | 2021-09-25 14:51 | ED Physician Documentation ---
History of Present Illness - Stated complaint Stated Complaint: CP, DIZZY - Chief complaint Chief Complaint: Cardiac - Additonal information Additional information: 85-year-old male presents the emergency department for evaluation of feeling lightheaded, dizzy knee as well as developing some shortness of breath. He reports that he was putting up his [place] tree when he began to feel somewhat lightheaded and dizzy. He felt like his chest was racing fast. He did go downstairs to gets more [place] ornaments and felt more short of breath than normal when climbing the stairs. He took 325 of aspirin and 1 nitroglycerin then summoned EMS. The time that he presents here he is free of chest pain, shortness of air or dizziness. He does have a history of previous myocardial infarction in 2010. Status post stenting x2 with angioplasty. This gentleman was admitted to the hospital in early June after multiple syncopal episodes suspected to be TIA like. He did have unremarkable CT angio of the head and neck. Brain MRI did not show acute focal findings. He does have age-related volume loss. Echocardiogram completed 08/22/2021 showed an ejection fraction of approximately 60%. There was noted mild aortic stenosis. He did see Dr. Pugh his awning installer in follow-up after last hospitalization. It sounds like he wore a Holter monitor and is scheduled to follow-up for these results shortly. Review of Systems Constitutional: denies: Fever, Chills Eyes: reports: Reviewed and negative Ears: reports: Reviewed and negative Nose: reports: Reviewed and negative Throat: reports: Reviewed and negative Cardiac: reports: Chest pain / pressure, Palpitations. denies: Pedal edema, Calf pain Respiratory: reports: Dyspnea. denies: Cough GI: reports: Reviewed and negative : reports: Reviewed and negative Skin: reports: Reviewed and negative Musculoskeletal: reports: Reviewed and negative PD PAST MEDICAL HISTORY - Past Medical History Cardiovascular: Hypertension, [place], Other Respiratory: None Endocrine/Autoimmune: None GI: Colon polyps : Frequency HEENT: Chronic hearing loss Psych: None Musculoskeletal: Rheumatoid arthritis, Other Derm: None - Past Surgical History Past Surgical History: Yes Ortho: Other Cardiovascular: Coronary stent HEENT: Tonsil/Adenoidectomy - Present Medications Home Medications: Ambulatory Orders Medication Instructions Recorded Confirmed Ascorbic Acid [Vitamin C] 1 tab PO DAILY 02/21/15 09/25/21 Aspirin [Aspir 81] 81 mg PO DAILY 02/21/15 09/25/21 metroNIDAZOLE 0.75% GEL [Flagyl 1 applic TOP BID 02/21/15 09/25/21 Gel] Latanoprost 0.005% Ophth Drops 1 drops OPTH QPM 08/07/15 09/25/21 [Xalatan Ophth Drops] Minocycline HCl 100 mg PO BID 07/23/19 09/25/21 Nitroglycerin 0.4 mg SL PRN PRN 07/23/19 09/25/21 Atorvastatin Calcium [Lipitor] 80 mg PO DAILY 08/21/21 09/25/21 Isosorbide Mononitrate ER [Imdur] 30 mg PO DAILY 08/21/21 09/25/21 Metoprolol Succinate [Toprol Xl] 12.5 mg PO DAILY 09/25/21 09/25/21 Tamsulosin [Flomax] 0.4 mg PO DAILY 09/25/21 09/25/21 - Allergies Allergies/Adverse Reactions: Allergies Allergy/AdvReac Type Severity Reaction Status Date / Time morphine AdvReac Severe bradycardia Verified 09/25/21 14:39 - Social History Does the pt smoke?: No Smoking Status: Former smoker Does the pt drink ETOH?: No Does the pt have substance abuse?: No - Immunizations Immunizations are current?: No - POLST Patient has POLST: No PD ED PE EXPANDED - General General: Alert, No acute distress, Well developed/nourished - Cardiac Cardiac: Regular Rate, Murmur Present, Radial strong equal, Pedal strong equal, Cap refill < 2 sec - Respiratory Respiratory: Clear to ausultation ruthie. No: Distress, Labored - Abdomen Abdomen: Normal Bowel sounds. No: Tender to palpation - Extremities Extremities: Normal. No: Deformity, Tenderness, Pedal edema bilateral, Right c fci TTP/cord, Left calf TTP/cord - Neuro Neuro: Alert and Oriented X 3, CNII-XII intact, Normal gait, Normal finger nose, Normal speech - GCS Eye Opening: Spontaneous Motor: Obeys Commands Verbal: Oriented Total: 15 Results - Vitals Vitals: Vital Signs - 24 hr 09/25/21 09/25/21 09/25/21 14:39 16:52 17:09 Temperature 36.4 C L Heart Rate 100 60 Heart Rate [ 76 Sitting] Heart Rate [ 79 Standing] Heart Rate [ 83 Supine] Respiratory 22 13 Rate Blood Pressure 138/82 H 137/86 H Blood Pressure 151/88 H [Sitting] Blood Pressure 147/89 H [Standing] Blood Pressure 133/93 H [Supine] O2 Saturation 100 94 Oxygen O2 Source Room air - EKG (time done) 1440 Rate: Rate (enter#) (88) Rhythm: NSR Floweree: Normal, Anterior hemiblock (LAFB) Intervals: Normal LA. No: Prolonged QT QRS: Normal Ischemia: Normal ST segments Compare to prior EKG: Unchanged from prior EKG Computer interpretation: Agree with computer - Labs Labs: Laboratory Tests 09/25/21 09/25/21 09/25/21 15:10 15:10 15:10 WBC 6.0 RBC 4.21 L Hgb 13.3 L Hct 41.3 L MCV 98.1 H MCH 31.6 H MCHC 32.2 RDW 12.4 Plt Count 142 MPV 10.5 Neut # (Auto) 4.7 Lymph # (Auto) 0.8 L [place] # (Auto) 0.4 Eos # (Auto) 0.1 Baso # (Auto) 0.0 Absolute Nucleated RBC 0.00 Nucleated RBC % 0.0 Sodium 140 Potassium 4.1 Chloride 107 Carbon Dioxide 23 Anion Gap 10.0 BUN 21 H Creatinine 1.0 Estimated GFR (MDRD) 71 L Glucose 155 H Calcium 8.7 Total Bilirubin 0.8 AST 32 ALT 29 Alkaline Phosphatase 102 Troponin I High Sens 9.5 B-Natriuretic Peptide Total Protein 6.1 L Albumin 3.4 Globulin 2.7 Albumin/Globulin Ratio 1.3 Lipase 34 09/25/21 09/25/21 15:10 16:33 WBC RBC Hgb Hct MCV MCH MCHC RDW Plt Count MPV Neut # (Auto) Lymph # (Auto) [place] # (Auto) Eos # (Auto) Baso # (Auto) Absolute Nucleated RBC Nucleated RBC % Sodium Potassium Chloride Carbon Dioxide Anion Gap BUN Creatinine Estimated GFR (MDRD) Glucose Calcium Total Bilirubin AST ALT Alkaline Phosphatase Troponin I High Sens 10.8 B-Natriuretic Peptide 59 Total Protein Albumin Globulin Albumin/Globulin Ratio Lipase - Rads (name of study) CXR Radiology: Final report received (Generalized interstitial prominence is again noted. Given prior reports this is most likely related to chronic interstitial lung disease.) PD MEDICAL DECISION MAKING - ED course Complexity details: reviewed old records, reviewed results, re-evaluated patient, considered differential, d/w patient ED course: 85-year-old male presents emergency department for evaluation of shortness of air feeling lightheaded and dizzy and a brief episode of chest pain while he was putting up his [place] tree this afternoon. This is more activity than he is typically accustomed to. He did take some nitroglycerin and aspirin prior to calling EMS. By the time EMS arrived and on arrival here to the ER he is free of chest pain or any shortness of air/dizziness. He was admitted to this hospital little over a month ago for syncope and concerns of TIA. Subsequent CT angio and MRI of the brain without acute findings. He also had an echocardiogram completed that showed mild aortic valve stenosis. He had an EF of 55 to 60%. Screening labs today show no acute worrisome abnormalities. High-sensitivity troponin x2 is negative. His screening EKG is unremarkable. Patient feels improved at this time. He did receive 1 L of IV fluids in the emergency department. He had negative orthostatics. He feels stable for discharge home. I have advised close follow-up with his awning installer Dr. Pugh. Otherwise emergent return precautions were discussed. Departure - Departure Disposition: 01 Home, Self Care Clinical Impression: Lightheaded Chest pain Qualifiers: Chest pain type: unspecified Qualified Code(s): R07.9 - Chest pain, unspecified Condition: Stable Record reviewed to determine appropriate education?: Yes Instructions: ED Chest Pain Atypical Unkn Cause Follow-Up: Jose R Benítez MD [Physician No Access] - Comments: Dakota benito are seen in the emergency department today for feeling lightheaded dizzy short of air and developing chest pain after putting your [place] tree together. You may have had some angina which is a an early sign of coronary artery disease. Your screening EKG today shows no acute changes. Your labs were otherwise normal. It is very important that you discuss this ED visit with your awning installer. You may benefit from reevaluation of coronary artery disease either through a stress test or to have coronary angiogram gram completed. If at any point you have a return of symptoms, feel faint, lightheaded have any fainting episodes or develop chest pain that does not improve with nitroglycerin then please return immediately to the ER for a second evaluation.
[2021-09-25 15:16] LABS: BASOPHILS % (AUTO) 0.5 %; EOSINOPHILS # (AUTO) 0.1 10^3/uL (0.0-0.7); HCT - HEMATOCRIT 41.3 % (42.0-52.0); HGB - HEMOGLOBIN 13.3 g/dL (14.0-18.0); LYMPHOCYTES # (AUTO) 0.8 10^3/uL (1.5-3.5); LYMPHOCYTES % (AUTO) 13.5 %; MEAN CORPUSCULAR HEMOGLOBIN 31.6 pg (27.0-31.0); MEAN CORPUSCULAR HGB CONC 32.2 g/dL (32.0-36.0); MEAN CORPUSCULAR VOLUME 98.1 fL (80.0-94.0); MEAN PLATELET VOLUME 10.5 fL (7.4-11.4); MONOCYTES # (AUTO) 0.4 10^3/uL (0.0-1.0); NEUTROPHILS # (AUTO) 4.7 10^3/uL (1.5-6.6); NEUTROPHILS % (AUTO) 77.8 %; PLT - PLATELET COUNT 142 10^3/uL (130-450); RED BLOOD COUNT 4.21 10^6/uL (4.70-6.10); RED CELL DISTRIBUTION WIDTH 12.4 % (12.0-15.0)
[2021-09-25 15:28] LABS: ALBUMIN 3.4 g/dL (3.2-5.5); ALBUMIN/GLOBULIN RATIO 1.3 (1.0-2.2); BILIRUBIN,TOTAL 0.8 mg/dL (0.2-1.0); CALCIUM 8.7 mg/dL (8.5-10.3); POTASSIUM 4.1 mmol/L (3.5-5.0); TOTAL PROTEIN 6.1 g/dL (6.7-8.2)
--- NOTE | 2021-09-25 15:35 | XRAY Report ---
PROCEDURE: Chest 1 View X-Ray INDICATIONS: Chest Pain TECHNIQUE: One view of the chest was acquired. COMPARISON: Correlation is made with reports only (no images) from prior chest radiographs, 7, 06/24/2019, 09/05/2016, and 09/01/2020. Correlation is also made with prior chest CT report, 020 FINDINGS: Surgical changes and devices: None. Lungs and pleura: No pleural effusions or pneumothorax. Generalized interstitial prominence is seen, which is likely stable from prior reports. Mediastinum: The aorta is prominent and tortuous. The cardiac contours are within normal limits. Bones and chest wall: No suspicious bony lesions. Overlying soft tissues appear unremarkable. IMPRESSION: Generalized interstitial prominence is again noted. Given the prior reports, this is most likely rela hitesh to chronic interstitial lung disease. Reviewed by: Mark Corrales MD on 09/25/2021 2:33 PM SÁNCHEZ Approved by: Mark Corrales MD on 09/25/2021 2:33 PM AKEFRAIN Station ID: [id number]
[2021-09-25 18:06] VITALS: BP 143/77
== END 2021-09-25 18:22 | disposition home or self-care (01) ==
LOC: EDUNIT# → ED 14:31 → SUPCPDRO 14:31 → ED 18:22
DX: R07.89 Other chest pain (principal); I25.2 Old myocardial infarction; I10 Essential (primary) hypertension; Z87.891 Personal history of nicotine dependence
CPT/HCPCS: 36415; 80053; 83690; 83880; 84484; 85025; 93005; 99283; 99284

== ENCOUNTER 2021-12-28 07:45 | Outpatient (CLI) | payer MEDICARE, OTHER ==
[2021-12-28 12:22] LABS: BASOPHILS % (AUTO) 0.7 %; EOSINOPHILS # (AUTO) 0.5 10^3/uL (0.0-0.7); EOSINOPHILS % (AUTO) 8.6 %; HCT - HEMATOCRIT 42.6 % (42.0-52.0); HGB - HEMOGLOBIN 13.8 g/dL (14.0-18.0); LYMPHOCYTES # (AUTO) 1.1 10^3/uL (1.5-3.5); MEAN CORPUSCULAR HEMOGLOBIN 31.4 pg (27.0-31.0); MEAN CORPUSCULAR HGB CONC 32.4 g/dL (32.0-36.0); MEAN PLATELET VOLUME 11.6 fL (7.4-11.4); MONOCYTES # (AUTO) 0.6 10^3/uL (0.0-1.0); NEUTROPHILS # (AUTO) 3.4 10^3/uL (1.5-6.6); NEUTROPHILS % (AUTO) 60.5 %; PLT - PLATELET COUNT 151 10^3/uL (130-450); RED BLOOD COUNT 4.39 10^6/uL (4.70-6.10); RED CELL DISTRIBUTION WIDTH 13.3 % (12.0-15.0); WHITE BLOOD COUNT 5.6 x10^3/uL (4.8-10.8)
[2021-12-28 13:16] LABS: ESTIMATED AVERAGE GLUCOSE 131 mg/dL (70-100); HEMOGLOBIN A1c% 6.2 % (4.27-6.07)
[2021-12-28 13:22] LABS: THYROID STIMULATING HORMONE 7.92 uIU/mL (0.34-5.60)
[2021-12-28 13:25] LABS: ALBUMIN 3.6 g/dL (3.2-5.5); ALBUMIN/GLOBULIN RATIO 1.4 (1.0-2.2); ALKALINE PHOSPHATASE 98 IU/L (42-121); ALT ALANINE AMINOTRANSFERASE 29 IU/L (10-60); AST ASPARTATE AMINOTRANSFERASE 30 IU/L (10-42); BILIRUBIN,TOTAL 1.3 mg/dL (0.2-1.0); BUN - BLOOD UREA NITROGEN 23 mg/dL (6-20); CALCIUM 8.8 mg/dL (8.5-10.3); CARBON DIOXIDE - CO2 25 mmol/L (21-32); CHLORIDE 104 mmol/L (101-111); CHOL/HDL RATIO 1.7 (<5.0); CHOLESTEROL 136 mg/dL; GFR - MDRD 71 (>89); GLUCOSE 98 mg/dL (70-100); HDL CHOLESTEROL 78 mg/dL; LDL CHOLESTEROL,CALCULATED 49 mg/dL; LDL/HDL RATIO 0.6 (<3.6); POTASSIUM 3.8 mmol/L (3.5-5.0); SODIUM 138 mmol/L (135-145); TOTAL PROTEIN 6.1 g/dL (6.7-8.2); TRIGLYCERIDES 43 mg/dL; VLDL CHOLESTEROL 9 mg/dL
[2021-12-28 14:16] LABS: FREE T4 (FREE THYROXINE) 0.82 ng/dL (0.58-1.64)
== END 2021-12-28 07:46 | disposition home or self-care (01) ==
LOC: LAB.N 07:45
PROVIDERS: ATTEND Family Medicine
DX: I25.10 Atherosclerotic heart disease of native coronary artery without angina pectoris (principal); E74.39 Other disorders of intestinal carbohydrate absorption; E03.9 Hypothyroidism, unspecified
CPT/HCPCS: 36415; 80053; 80061; 83036; 83721; 84439; 84443; 85025

== ENCOUNTER 2022-03-08 07:42 | Outpatient (CLI) | payer MEDICARE, OTHER ==
[2022-03-08 12:25] LABS: THYROID STIMULATING HORMONE 4.43 uIU/mL (0.34-5.60)
== END 2022-03-08 07:43 | disposition home or self-care (01) ==
LOC: LAB.N 07:42
PROVIDERS: ATTEND Family Medicine
DX: E03.9 Hypothyroidism, unspecified (principal)
CPT/HCPCS: 36415; 84443

== ENCOUNTER 2022-05-19 20:19 | Emergency (ER) | payer MEDICARE, OTHER ==
[2022-05-19 20:32] VITALS: BP 148/65
[2022-05-19] MEDS ORDERED: LIDOCAINE 1%-EPI 1:100000 20 ML MDV SUBQ STA (20:41)
--- NOTE | 2022-05-19 20:42 | ED Physician Documentation ---
PD HPI UPPER EXT INJURY - Stated complaint Stated Complaint: R HAND LAC - Chief complaint Chief Complaint: Laceration - History obtained from History obtained from: Patient - History of Present Illness Location: Right (86-year-old left-handed gentleman cut the dorsum of his right hand on his truck tailgate at home just prior to arrival.) Review of Systems Constitutional: denies: Fever, Chills Cardiac: reports: Reviewed and negative Respiratory: reports: Reviewed and negative PD PAST MEDICAL HISTORY - Past Medical History Cardiovascular: Hypertension, [place], Other Respiratory: None Neuro: TIA Endocrine/Autoimmune: None GI: Colon polyps : Frequency HEENT: Chronic hearing loss Psych: None Musculoskeletal: Rheumatoid arthritis, Other Derm: None - Past Surgical History Past Surgical History: Yes Ortho: Other Cardiovascular: Coronary stent HEENT: Tonsil/Adenoidectomy - Present Medications Home Medications: Ambulatory Orders Medication Instructions Recorded Confirmed Ascorbic Acid [Vitamin C] 1 tab PO DAILY 02/21/15 09/25/21 Aspirin [Aspir 81] 81 mg PO DAILY 02/21/15 09/25/21 metroNIDAZOLE 0.75% GEL [Flagyl 1 applic TOP BID 02/21/15 09/25/21 Gel] Latanoprost 0.005% Ophth Drops 1 drops OPTH QPM 08/07/15 09/25/21 [Xalatan Ophth Drops] Minocycline HCl 100 mg PO BID 07/23/19 09/25/21 Nitroglycerin 0.4 mg SL PRN PRN 07/23/19 09/25/21 Atorvastatin Calcium [Lipitor] 80 mg PO DAILY 08/21/21 09/25/21 Isosorbide Mononitrate ER [Imdur] 30 mg PO DAILY 08/21/21 09/25/21 Metoprolol Succinate [Toprol Xl] 12.5 mg PO DAILY 09/25/21 09/25/21 Tamsulosin [Flomax] 0.4 mg PO DAILY 09/25/21 09/25/21 - Allergies Allergies/Adverse Reactions: Allergies Allergy/AdvReac Type Severity Reaction Status Date / Time morphine AdvReac Severe bradycardia Verified 05/19/22 20:31 - Social History Does the pt smoke?: No Smoking Status: Former smoker Does the pt drink ETOH?: No Does the pt have substance abuse?: No - Immunizations Immunizations are current?: No - POLST Patient has POLST: No PD ED PE NORMAL - Vitals Vital signs reviewed: Yes - General General: Alert and oriented X 3, No acute distress - Extremities Extremities: Other (There is a 3 cm V-shaped laceration that is shallow but deep enough to require suturing on the dorsum of the left hand between the second and third metacarpals without distal neurovascular compromise.) - Neuro Neuro: Alert and oriented X 3, Normal speech Results - Vitals Vitals: Vital Signs - 24 hr 05/19/22 20:28 Temperature 36.8 C Heart Rate 85 Respiratory 16 Rate Blood Pressure 148/65 H O2 Saturation 96 Oxygen O2 Source Room air Procedures - Laceration (location) R hand Length in cm: 2 Wound type: Irregular, Flap, Superficial Anesthesia: Lidocaine 1% with epi Wound preparation: Irrigated copiously NS Skin layer closure: Nylon, Interrupted, Size #-0 - enter number (4-0), Sutures - enter # (5) Other: Patient tolerated well, No complications, Neurovascular intact, Tetanus UTD Departure - Departure Disposition: 01 Home, Self Care Clinical Impression: Laceration of right hand Condition: Good Record reviewed to determine appropriate education?: Yes Instructions: ED Laceration Hand Comments: Note for your records you had a tetanus shot in February 2015, so you are current. Come back for any signs of infection which would include: Redness, swelling, drainage, increased pain, or fevers. You can wash it soap and water. Keep it covered and moist with bacitracin ointment which is available over the counter; avoid neosporin. Follow-up with your physician in about 14 days for suture removal.
== END 2022-05-19 21:19 | disposition home or self-care (01) ==
LOC: ED 20:19
DX: S61.411A Laceration without foreign body of right hand, initial encounter (principal); W26.8XXA Contact with other sharp object(s), not elsewhere classified, initial encounter; I10 Essential (primary) hypertension; Z87.891 Personal history of nicotine dependence
CPT/HCPCS: 12001; 99281

== ENCOUNTER 2022-07-20 10:30 | Outpatient (CLI) | payer MEDICARE, OTHER | END 2022-07-20 10:31 | disposition home or self-care (01) | LOC: MAC.MOP 10:30 | PROVIDERS: ATTEND Nurse Practitioner | DX: I47.1 Supraventricular tachycardia (principal); I49.9 Cardiac arrhythmia, unspecified; I49.1 Atrial premature depolarization; I49.3 Ventricular premature depolarization | CPT/HCPCS: 93248 ==

== ENCOUNTER 2022-07-21 10:30 | Outpatient (CLI) | payer MEDICARE, OTHER | END 2022-07-21 10:31 | disposition home or self-care (01) | LOC: MAC.MOP 10:30 | PROVIDERS: ATTEND Nurse Practitioner | DX: Z53.9 Procedure and treatment not carried out, unspecified reason (principal) ==

== ENCOUNTER 2023-03-15 08:01 | Outpatient (CLI) | payer MEDICARE, OTHER ==
[2023-03-15 12:26] LABS: THYROID STIMULATING HORMONE 10.33 uIU/mL (0.34-5.60)
[2023-03-15 12:28] LABS: FREE T4 (FREE THYROXINE) 0.92 ng/dL (0.58-1.64)
== END 2023-03-15 08:02 | disposition home or self-care (01) ==
LOC: LAB.N 08:01
PROVIDERS: ATTEND Internal Medicine
DX: E03.9 Hypothyroidism, unspecified (principal)
CPT/HCPCS: 36415; 84439; 84443

== ENCOUNTER 2023-06-02 11:15 | Outpatient (CLI) | payer MEDICARE, OTHER ==
[2023-06-02 18:06] LABS: CREATININE 1.1 mg/dL (0.6-1.2); POTASSIUM 4.1 mmol/L (3.5-5.0)
== END 2023-06-02 11:16 | disposition home or self-care (01) ==
LOC: LAB.N 11:15
PROVIDERS: ATTEND Urology
DX: D09.0 Carcinoma in situ of bladder (principal); Z87.898 Personal history of other specified conditions
CPT/HCPCS: 36415; 80048

== ENCOUNTER 2023-07-13 20:45 | Emergency (ER) | payer MEDICARE, OTHER ==
[2023-07-13 21:36] LABS: BASOPHILS % (AUTO) 0.1 %; HCT - HEMATOCRIT 41.2 % (42.0-52.0); HGB - HEMOGLOBIN 13.2 g/dL (14.0-18.0); LYMPHOCYTES # (AUTO) 0.4 10^3/uL (1.5-3.5); LYMPHOCYTES % (AUTO) 5.5 %; MEAN CORPUSCULAR HEMOGLOBIN 31.5 pg (27.0-31.0); MEAN CORPUSCULAR VOLUME 98.3 fL (80.0-94.0); MEAN PLATELET VOLUME 10.8 fL (7.4-11.4); MONOCYTES # (AUTO) 0.5 10^3/uL (0.0-1.0); MONOCYTES % (AUTO) 5.9 %; NEUTROPHILS # (AUTO) 6.9 10^3/uL (1.5-6.6); NEUTROPHILS % (AUTO) 88.1 %; PLT - PLATELET COUNT 125 10^3/uL (130-450); RED BLOOD COUNT 4.19 10^6/uL (4.70-6.10); RED CELL DISTRIBUTION WIDTH 13.4 % (12.0-15.0); WHITE BLOOD COUNT 7.8 x10^3/uL (4.8-10.8)
[2023-07-13 21:42] LABS: INR 1.1 (0.8-1.2)
[2023-07-13 21:47] LABS: ALBUMIN 3.5 g/dL (3.2-5.5); ALBUMIN/GLOBULIN RATIO 1.3 (1.0-2.2); BILIRUBIN,TOTAL 0.8 mg/dL (0.2-1.0); CALCIUM 8.4 mg/dL (8.5-10.3); CREATININE 1.2 mg/dL (0.6-1.2); POTASSIUM 4.2 mmol/L (3.5-5.0); TOTAL PROTEIN 6.3 g/dL (6.7-8.2)
--- NOTE | 2023-07-13 21:56 | ED Physician Documentation ---
History of Present Illness - Stated complaint Stated Complaint: - Chief complaint Chief Complaint: General - History obtained from History obtained from: Patient, Family (daughter) - Additonal information Additional information: 87yM with hx urinary bladder cancer p/w hematuria s/p cystoscopy and biopsy today at [facility]. Patient also saw a couple of tiny clots. This seems to have improved since arriving to the ED. denies fever, dysuria. also with leakage of small amount of urine around the meatus. PD PAST MEDICAL HISTORY - Past Medical History Cardiovascular: Hypertension, [place], Other Respiratory: None Neuro: TIA Endocrine/Autoimmune: None GI: Colon polyps : Frequency HEENT: Chronic hearing loss Psych: None Musculoskeletal: Rheumatoid arthritis, Other Derm: None - Past Surgical History Past Surgical History: Yes Ortho: Other Cardiovascular: Coronary stent HEENT: Tonsil/Adenoidectomy - Present Medications Home Medications: Ambulatory Orders Medication Instructions Recorded Confirmed Ascorbic Acid [Vitamin C] 1 tab PO DAILY 02/21/15 09/25/21 Aspirin [Aspir 81] 81 mg PO DAILY 02/21/15 09/25/21 metroNIDAZOLE 0.75% GEL [Flagyl 1 applic TOP BID 02/21/15 09/25/21 Gel] Latanoprost 0.005% Ophth Drops 1 drops OPTH QPM 08/07/15 09/25/21 [Xalatan Ophth Drops] Minocycline HCl 100 mg PO BID 07/23/19 09/25/21 Nitroglycerin 0.4 mg SL PRN PRN 07/23/19 09/25/21 Atorvastatin Calcium [Lipitor] 80 mg PO DAILY 08/21/21 09/25/21 Isosorbide Mononitrate ER [Imdur] 30 mg PO DAILY 08/21/21 09/25/21 Metoprolol Succinate [Toprol Xl] 12.5 mg PO DAILY 09/25/21 09/25/21 Tamsulosin [Flomax] 0.4 mg PO DAILY 09/25/21 09/25/21 - Allergies Allergies/Adverse Reactions: Allergies Allergy/AdvReac Type Severity Reaction Status Date / Time morphine AdvReac Severe bradycardia Verified 07/13/23 20:56 - Social History Does the pt smoke?: No Smoking Status: Former smoker Does the pt drink ETOH?: No Does the pt have substance abuse?: No - Immunizations Immunizations are current?: No - POLST Patient has POLST: No PD ED PE NORMAL - Vitals Vital signs reviewed: Yes - General General: Alert and oriented X 3, No acute distress, Well developed/nourished - HEENT HEENT: Atraumatic, PERRL, EOMI - Abdomen Abdomen: Non tender, Non distended - Male Male : Other (arreola in place. small amount of liquid around the meatus. pink tinged urine in arreola bag and urine actively flowing through the tube) - Derm Derm: Normal color, Warm and dry - Neuro Neuro: No motor deficit, No sensory deficit - Psych Psych: Normal mood, Normal affect Results - Vitals Vitals: Vital Signs - 24 hr 07/13/23 20:46 Temperature 37.1 C Heart Rate 105 H Respiratory 18 Rate Blood Pressure 150/74 H O2 Saturation 98 Oxygen O2 Source Room air - Labs Labs: Laboratory Tests 07/13/23 07/13/23 21:30 21:30 WBC 7.8 RBC 4.19 L Hgb 13.2 L Hct 41.2 L MCV 98.3 H MCH 31.5 H MCHC 32.0 RDW 13.4 Plt Count 125 L MPV 10.8 Neut # (Auto) 6.9 H Lymph # (Auto) 0.4 L [place] # (Auto) 0.5 Eos # (Auto) 0.0 Baso # (Auto) 0.0 Absolute Nucleated RBC 0.00 Nucleated RBC % 0.0 Sodium 138 Potassium 4.2 Chloride 109 Carbon Dioxide 23 Anion Gap 6.0 BUN 22 H Creatinine 1.2 Estimated GFR (MDRD) 57 L Glucose 148 H Calcium 8.4 L Total Bilirubin 0.8 AST 28 ALT 22 Alkaline Phosphatase 91 Total Protein 6.3 L Albumin 3.5 Globulin 2.8 Albumin/Globulin Ratio 1.3 PD Medical Decision Making - ED course ED course: 87yM presents to the ED with concern about blood in his urine after bladder biopsy today. Patient has pinkish tinged urine on exam and is making good urine, producing ~500cc since 8pm. Small amount of leakage around the meatus. patient is supposed to have arreola removed in the morning. Advised to go forward with this and to hold his daily aspirin for a couple days. return precautions given. Departure - Departure Disposition: 01 Home, Self Care Clinical Impression: Hematuria, Arreola catheter status Condition: Stable Instructions: Arreola Catheter Remove Comments: You were seen in the emergency department for blood in the urine and for arreola check. Please hold off on taking aspirin for a couple days. You can go ahead and take your arreola out tomorrow. Please follow-up with your suregeon and return to the emergency department if you have any new or worsening symptoms or other concerns.
[2023-07-13 21:59] LABS: PARTIAL THROMBOPLASTIN TIME 28.1 secs (24.9-33.3)
[2023-07-13 22:11] VITALS: BP 163/84; O2SAT 96
== END 2023-07-13 22:09 | disposition home or self-care (01) ==
LOC: ED 20:45
DX: R31.0 Gross hematuria (principal); T83.031A Leakage of indwelling urethral catheter, initial encounter; Z79.82 Long term (current) use of aspirin
CPT/HCPCS: 36415; 80053; 85025; 85610; 85730; 99283

== ENCOUNTER 2023-08-07 07:42 | Outpatient (CLI) | payer MEDICARE, OTHER ==
[2023-08-07 12:48] LABS: CALCIUM 9.3 mg/dL (8.5-10.3); POTASSIUM 3.9 mmol/L (3.5-4.5)
== END 2023-08-07 07:43 | disposition home or self-care (01) ==
LOC: LAB.N 07:42
PROVIDERS: ATTEND Internal Medicine
DX: I25.119 Atherosclerotic heart disease of native coronary artery with unspecified angina pectoris (principal)
CPT/HCPCS: 36415; 80048